=== PATIENT | female | born 1995 | race African-American/Black ===

== ENCOUNTER 2020-12-06 10:26 | Emergency (ER) | payer BC ==
--- NOTE | 2020-12-06 11:48 | RAD REPORT ---
EXAM DESCRIPTION: RAD - Chest Pa And Lat (2 Views) - 12/06/2020 11:41 am CLINICAL HISTORY: CHEST PAIN Chest pain. COMPARISON: CHEST PA AND LAT 2 VIEW dated 01/06/2013 FINDINGS: The lungs are clear. The heart is normal in size. No displaced fractures. IMPRESSION: No acute or concerning finding suspected.
--- NOTE | 2020-12-06 11:54 | EDPHYS ---
Physician Documentation [facility] Name: Charmaine Wilde Age: 25 yrs Sex: Female : 1995 Arrival Date: 12/06/2020 Time: 10:30 Bed 2 Private MD: ED Physician Damion Znuiga HPI: 12/06 11:24 This 25 yrs old Black Female presents to ER via Ambulatory with complaints of Chest rn Pain. 11:24 The patient or guardian reports chest pain that is located primarily in the anterior rn chest wall. The pain does not radiate. Associated signs and symptoms: The patient has no apparent associated signs or symptoms, Pertinent negatives: abdominal pain, cough, diaphoresis, lightheadedness, near syncope, recent travel, shortness of breath, syncope, vomiting. The chest pain is described as sharp, stabbing. Duration: The patient or guardian reports multiple episodes, that are intermittent. Modifying factors: The symptoms are alleviated by nothing. the symptoms are aggravated by movement, palpation of area, twisting torso. Severity of pain: At its worst the pain was mild in the emergency department the pain is unchanged. The patient has not experienced similar symptoms in the past. 11:25 The patient has not recently seen a physician. Reports woke up with anterior chest pain rn this morning, doesn't recall specific trauma, no sob or cough, no fever, no radiation, reports worse when twists, palpates breast bone, and moves arms. Does exercise but denies anything out of the ordinary lately. No abd pain/vomiting/diarrhea. No new medication. No famhx of early cardiac problems. . Historical: - Allergies: 10:35 No Known Allergies; sv - PMHx: 10:35 allergies; sv 10:35 Asthma; sv - PSHx: 10:35 None; sv - Immunization history:: Flu vaccine is not up to date. - Social history:: Smoking status: Patient denies any tobacco usage or history of. - Family history:: not pertinent. - Hospitalizations: : No recent hospitalization is reported. ROS: 11:25 Constitutional: Negative for fever, chills, and weight loss, Eyes: Negative for injury, rn pain, redness, and discharge, Neck: Negative for injury, pain, and swelling, Cardiovascular: Negative for palpitations, and edema, Respiratory: Negative for shortness of breath, cough, wheezing Abdomen/GI: Negative for abdominal pain, nausea, vomiting, diarrhea, and constipation, Back: Negative for injury and pain, MS/Extremity: Negative for injury and deformity, Skin: Negative for injury, rash, and discoloration, Neuro: Negative for headache, weakness, numbness, tingling, and seizure. Exam: 11:15 ECG was reviewed by the Attending Physician. rn 11:25 Constitutional: This is a well developed, well nourished patient who is awake, alert, rn and in no acute distress. Head/Face: Normocephalic, atraumatic. Eyes: Pupils equal round and reactive to light, extra-ocular motions intact. Chest/axilla: Normal chest wall appearance and motion. Reproducible anterior chest wall tenderness, no crepitus Cardiovascular: Regular rate and rhythm. No pulse deficits. Respiratory: Lungs have equal breath sounds bilaterally, clear to auscultation and percussion. No rales, rhonchi or wheezes noted. No increased work of breathing, no retractions or nasal flaring. Abdomen/GI: soft, non-tender Skin: Warm, dry with normal turgor. Normal color with no rashes, no lesions, and no evidence of cellulitis. MS/ Extremity: Pulses equal, no cyanosis. Neurovascular intact. Full, normal range of motion. Equal circumference. Neuro: Awake and alert, GCS 15, oriented to person, place, time, and situation. Cranial nerves II-XII grossly intact. Motor strength 5/5 in all extremities. Sensory grossly intact. Cerebellar exam normal. Normal gait. Vital Signs: 10:35 BP 118 / 93; Pulse 83; Resp 18; Temp 97.6; Pulse Ox 95% ; Weight 75.75 kg; Height 5 ft. sv 4 in. (162.56 cm); 11:58 BP 108 / 89; Pulse 73; Resp 22; Pulse Ox 100% on R/A; tw2 10:35 Body Mass Index 28.67 (75.75 kg, 162.56 cm) sv MDM: 11:07 Patient medically screened. rn 11:51 Differential diagnosis: acute pericarditis, chest wall pain, costochondritis, rn esophagitis, pleurisy, pneumothorax. Data reviewed: vital signs, nurses notes, EKG, radiologic studies, plain films, and as a result, I will discharge patient. Counseling: I had a detailed discussion with the patient and/or guardian regarding: the historical points, exam findings, and any diagnostic results supporting the discharge/admit diagnosis, radiology results, the need for outpatient follow up, to return to the emergency department if symptoms worsen or persist or if there are any questions or concerns that arise at home. Special discussion: Based on the patient's history, exam, and Dx evaluation, there is no indication for emergent intervention or inpatient Tx. It is understood by the patient/guardian that if the Sx's persist or worsen they need to return immediately for re-evaluation. I discussed with the patient/guardian in detail that at this point there is no indication for admission to the hospital. It is understood, however, that if the symptoms persist or worsen the patient needs to return immediately for re-evaluation. ED course: Reproducible chest wall tenderness on this 25 year old without risk factors, no ischemia on ECG, cxr neg, normal vitals, will dc home with pcp f/u and return precautions if worsens. . 12/06 11:15 Order name: XRAY Chest Pa And Lat (2 Views); Complete Time: 11:51 rn 12/06 11:15 Order name: EKG; Complete Time: 11:16 rn 12/06 11:15 Order name: EKG - Nurse/Tech; Complete Time: 11:16 rn EC:15 Rate is 70 beats/min. Rhythm is regular. QRS [place] is Normal. LA interval is normal. QRS rn interval is normal. QT interval is normal. No Q waves. T waves are Normal. No ST changes noted. Clinical impression: Normal ECG. Interpreted by me. Reviewed by me. Administered Medications: No medications were administered Disposition: 12/06/20 11:53 Discharged to Home. Impression: Chest pain, unspecified. - Condition is Stable. - Discharge Instructions: Nonspecific Chest Pain. - Medication Reconciliation Form, Thank You Letter, Antibiotic Education, Prescription Opioid Use, Work release form form. - Follow up: Private Physician; When: As needed; Reason: Recheck today's complaints, Re-evaluation by your physician. - Problem is new. - Symptoms have improved. Signatures: Dispatcher [employer] Freida Titus RN RN sv Nieto, Roman, MD MD rn Smirch, Shelby, RN RN ss Corrections: (The following items were deleted from the chart) 12:13 11:53 12/06/2020 11:53 Discharged to Home. Impression: Chest pain, unspecified. ss Condition is Stable. Forms are Work release form, Medication Reconciliation Form, Thank You Letter, Antibiotic Education, Prescription Opioid Use. Follow up: Private Physician; When: As needed; Reason: Recheck today's complaints, Re-evaluation by your physician. Problem is new. Symptoms have improved. rn
--- NOTE | 2020-12-06 11:54 | ER ---
Nurse's Notes [facility] Name: Charmaine Wilde Age: 25 yrs Sex: Female : 1995 Arrival Date: 12/06/2020 Time: 10:30 Bed 2 Private MD: Diagnosis: Chest pain, unspecified Presentation: 12/06 10:34 Chief complaint: Patient states: midsternal chest pain that woke her up out of her sv sleep that started this morning around 0630. Reports pain is with activity intermittently, denies CP at this time. Coronavirus screen: Client denies travel out of the [place] in the last 14 days. At this time, the client does not indicate any symptoms associated with coronavirus-19. Ebola Screen: No symptoms or risks identified at this time. Risk Assessment: Do you want to hurt yourself or someone else? Patient reports no desire to harm self or others. Onset of symptoms was December 06, 2020. 10:34 Method Of Arrival: Ambulatory sv 10:34 Acuity: JORDY 3 sv Historical: - Allergies: 10:35 No Known Allergies; sv - PMHx: 10:35 allergies; sv 10:35 Asthma; sv - PSHx: 10:35 None; sv - Immunization history:: Flu vaccine is not up to date. - Social history:: Smoking status: Patient denies any tobacco usage or history of. - Family history:: not pertinent. - Hospitalizations: : No recent hospitalization is reported. Screenin:20 Abuse screen: Denies threats or abuse. Nutritional screening: No deficits noted. tw2 Tuberculosis screening: No symptoms or risk factors identified. Fall Risk None identified. Assessment: 11:19 General: Appears in no apparent distress. well groomed, Behavior is anxious. Pain: tw2 Complains of pain in chest Pain does not radiate. Pain began suddenly. Neuro: Level of Consciousness is awake, alert, obeys commands, Oriented to person, place, time, situation. Cardiovascular: Reports chest pain, Denies shortness of breath, Patient's skin is warm and dry. Respiratory: Airway is patent Respiratory effort is even, unlabored, Respiratory pattern is regular, symmetrical. GI: No signs and/or symptoms were reported involving the gastrointestinal system. : No signs and/or symptoms were reported regarding the genitourinary system. EENT: No signs and/or symptoms were reported regarding the EENT system. Derm: No signs and/or symptoms reported regarding the dermatologic system. Musculoskeletal: Range of motion: intact in all extremities. 11:59 Reassessment: Patient appears in no apparent distress at this time. No changes from tw2 previously documented assessment. Patient and/or family updated on plan of care and expected duration. Pain level reassessed. Patient is alert, oriented x 3, equal unlabored respirations, skin warm/dry/pink. Vital Signs: 10:35 BP 118 / 93; Pulse 83; Resp 18; Temp 97.6; Pulse Ox 95% ; Weight 75.75 kg; Height 5 ft. sv 4 in. (162.56 cm); 11:58 BP 108 / 89; Pulse 73; Resp 22; Pulse Ox 100% on R/A; tw2 10:35 Body Mass Index 28.67 (75.75 kg, 162.56 cm) sv ED Course: 10:30 Patient arrived in ED. mr 10:34 Triage completed. sv 10:34 Arm band placed on. sv 10:39 EKG completed in triage. Results shown to MD. sv 11:07 Damion Zuniga MD is Attending Physician. rn 11:16 Mindy Webb RN is Primary Nurse. hb 11:21 Placed in gown. Bed in low position. corduroy brusher operator on. Pulse ox on. NIBP on. Warm tw2 blanket given. 11:21 Patient maintains SpO2 saturation greater than 95% on room air. tw2 11:40 X-ray completed. Patient tolerated procedure well. Note: pt shielded for x ray. Patient sw moved to radiology via wheelchair. Patient moved back from radiology. 11:41 XRAY Chest Pa And Lat (2 Views) In Process Unspecified. EDMS 12:12 No provider procedures requiring assistance completed. Patient did not have IV access ss during this emergency room visit. Administered Medications: No medications were administered Outcome: 11:53 Discharge ordered by . rn 12:12 Discharged to home ambulatory. ss 12:12 Condition: good 12:12 Discharge instructions given to patient, family, Instructed on discharge instructions, follow up and referral plans. Demonstrated understanding of instructions, follow-up care. 12:13 Patient left the ED. ss Signatures: Dispatcher [employer] EDMS Freida Manzano RN RN caden Vaca K[place] mr Zuniga, MD MD omari Bruno, Savanna, RN RN ss Kim Sawyer Heather, RN RN Irene Cordero, RN RN tw2
[2020-12-06 12:17] VITALS: TEMP 97.6
[2020-12-06 12:18] VITALS: BP 108/89; O2SAT 100
--- NOTE | 2020-12-07 18:44 | EKG ---
Test Date: 2020-12-06 Test Time: 10:39:17 Family Program Specialist: ARIANNA MEASUREMENT RESULTS: Intervals: Rate: 70 AK: 134 QRSD: 86 QT: 370 QTc: 399 [place]: P: 18 AK: 134 QRS: 57 T: 49 INTERPRETIVE STATEMENTS: Sinus rhythm with marked sinus arrhythmia Otherwise normal ECG No previous ECG available for comparison Electronically Signed On 12-07-20 18:40:37 KEEL PRESS OPERATOR by Brett Kaye
--- OUTSIDE RECORDS SUMMARY | 2020-12-07 21:40 | XMS REPORT ---
:1995 Author Organization [facility] Address [address] [place] [place] [address] Care Team Providers Name Role Phone Hirsch Unavailable [phone] PROBLEMS Type Condition ICD9-CM [id number] Onset Condition SNOMED Code Notes Code Code Dates Status Problem Recurrent L50.8 Active 81184595 periodic urticaria Problem Vitamin D E55.9 Active 61977520 deficiency Problem Asthma J45.909 Active 005194026 Problem Allergic J30.9 Active 01385817 rhinitis ALLERGIES No Known Allergies ENCOUNTERS from 1995 to 2020-11-21 Encounter Location Date Provider Diagnosis [employer] [facility] [address] [facility] [address] Oct, Ginger Hirsch Adult [facility] [place], [place] exam Z00 .00 ; Vitamin [address] D deficiency E5 5.9 ; Screening for diabetes mellit us (DM) Z13.1 ; Recurrent perio dic urticaria L50.8 ; Allergic rhinit is J30.9 and Asthm a J45.909 IMMUNIZATIONS No Information SOCIAL HISTORY Tobacco Use: Social History Observation Description Date Details (start date - stop date) Never Smoker Sex Assigned At : Social History Observation Description Sex Assigned At Unknown Tobacco Use/Smoking Question Answer Notes Are you a never smoker REASON FOR REFERRAL No Information VITAL SIGNS Height 64.00 in Oct, Weight 169 lbs Oct, Temperature 97.4 degrees Fahrenheit Oct, BMI 29.01 kg/m2 Oct, Oximetry 100 % Oct, Respiratory Rate 16 /min Oct, Blood pressure systolic 129 mm Hg Oct, Blood pressure diastolic 78 mm Hg Oct, MEDICATIONS Medication SIG (Take, Route, Frequency, Notes Start Date End Frantz e Status Duration) Womens Multivitamin - as directed Orally Active Iron 65 MG 1 tablet Orally Once a day for Active 30 day(s) PROCEDURES No Information RESULTS Component Value Reference Range COMPREHENSIVE METABOLIC PANEL(CMP) Reviewed date:11/17/2020 16:48:46 Interpretation: Performing Lab:, [facility], [address] [place] [address], [phone] Jaciel Simon GLUCOSE 95 65-99 UREA NITROGEN (BUN) 5 7-25 CREATININE 0.70 0.50-1.10 eGFR NON-AFR. FAROESE 119 > OR = 60 eGFR 138 > OR = 60 BUN/CREATININE RATIO 7 6-22 SODIUM 137 135-146 POTASSIUM 4.1 3.5-5.3 CHLORIDE 104 98-110 CARBON DIOXIDE 26 20-32 CALCIUM 9.4 8.6-10.2 PROTEIN, TOTAL 7.0 6.1-8.1 ALBUMIN 4.2 3.6-5.1 GLOBULIN 2.8 1.9-3.7 ALBUMIN/GLOBULIN RATIO 1.5 1.0-2.5 BILIRUBIN, TOTAL 0.5 0.2-1.2 ALKALINE PHOSPHATASE 32 31-125 AST 15 10-30 ALT 8 6-29 URINALYSIS, COMPLETE Reviewed date:11/17/2020 16:48:46 Interpretation: Performing Lab:, [facility], [address] [place] [address], [phone] Jaciel Simon COLOR YELLOW YELLOW APPEARANCE CLEAR CLEAR SPECIFIC GRAVITY 1.019 1.001-1.035 PH > OR = 8.5 5.0-8.0 GLUCOSE NEGATIVE NEGATIVE BILIRUBIN NEGATIVE NEGATIVE KETONES NEGATIVE NEGATIVE OCCULT BLOOD NEGATIVE NEGATIVE PROTEIN NEGATIVE NEGATIVE NITRITE NEGATIVE NEGATIVE LEUKOCYTE ESTERASE NEGATIVE NEGATIVE WBC NONE SEEN < OR = 5 RBC NONE SEEN < OR = 2 SQUAMOUS EPITHELIAL CELLS 0-5 < OR = 5 BACTERIA NONE SEEN NONE SEEN HYALINE CAST NONE SEEN NONE SEEN CBC (INCLUDES DIFF/PLT) Reviewed date:11/17/2020 16:48:46 Interpretation: Performing Lab:, [facility], [address] [place] [address], [phone] [facility] [place] [facility] WHITE BLOOD CELL COUNT 4.6 3.8-10.8 RED BLOOD CELL COUNT 4.39 3.80-5.10 HEMOGLOBIN 13.5 11.7-15.5 HEMATOCRIT 40.1 35.0-45.0 MCV 91.3 80.0-100.0 MCH 30.8 27.0-33.0 MCHC 33.7 32.0-36.0 RDW 12.8 11.0-15.0 PLATELET COUNT 343 140-400 MPV 10.0 7.5-12.5 ABSOLUTE NEUTROPHILS 2332 8484-5409 ABSOLUTE LYMPHOCYTES 5583 112-3984 ABSOLUTE MONOCYTES 354 200-950 ABSOLUTE EOSINOPHILS 32 15-500 ABSOLUTE BASOPHILS 32 0-200 NEUTROPHILS 50.7 LYMPHOCYTES 40.2 MONOCYTES 7.7 EOSINOPHILS 0.7 BASOPHILS 0.7 LIPID PANEL Reviewed date:11/17/2020 16:48:46 Interpretation: Performing Lab:, [facility], [address] [place] [address], [phone] [facility] [place] [facility] CHOLESTEROL, TOTAL 222 <200 HDL CHOLESTEROL 87 > OR = 50 TRIGLYCERIDES 54 <150 LDL-CHOLESTEROL 120 CHOL/HDLC RATIO 2.6 <5.0 NON HDL CHOLESTEROL 135 <130 VITAMIN D,25-OH,TOTAL,IA Reviewed date:11/17/2020 16:48:46 Interpretation: Performing Lab:, [facility], [address] [place] [address], [phone] Jaciel Alfred VITAMIN D,25-OH,TOTAL,IA 23 30-100 REASON FOR VISIT Wellness MEDICAL (GENERAL) HISTORY Type Description Date Medical History Allergic rhinitis Medical History Asthma Surgical History No Surgical history information Goals Section No Information Health Concerns No Information MEDICAL EQUIPMENT No Information MENTAL STATUS No Information FUNCTIONAL STATUS No Information ASSESSMENTS Encounter Date Diagnosis Assessment Notes Treatment Notes Treatm ent Clinical Notes Oct, Adult general - exercise regularly medical exam at least 30 minutes (ICD-10 - Z00.00) per day, maintain healthy diet with increased fruits and vegetables, diet low in fat/ cholesterol and sodium. -Aalways wear seatbelt in car, wear helmet when riding bike to prevent injury and wear sunblock if out in sun for more than 15 minutes to prevent skin cancer. - If sexually active advised to always use protection with condoms to prevent STDs. -Good to have annual check up annually. -Good to have an eye exam every year - Get Flu vaccine annually preferally July or brenda. - Tdap or Tetanus vaccine recommended every 10 years - Personalized care/ Routine labs ordered/ discussed and reviewed with patient -- labs ordered Oct, Vitamin D Increase foods rich deficiency in vitamin D such as (ICD-10 - E55.9) leafy greens, low fat milk or yogurt. Stay physically active. For strong bones and osteoprosis prevention take calcium 1200mg daily and vitamin D3 (2,000mg) daily. continue to stay physically active and do weight bearing exercises. Oct, Screening for screen for diabetes. diabetes mellitus (DM) (ICD-10 - Z13.1) Oct, Recurrent recommend allergy periodic testing for possible urticaria (ICD-10 cuases of allergies - L50.8) / uriticaria/hives for prevention /avoidance of triggers or immunotherapy treatment of allergies if allergens are identified. Oct, Allergic rhinitis recommend allergy (ICD-10 - J30.9) testing for possible cuases of allergies / uriticaria/hives for prevention /avoidance of triggers or immunotherapy treatment of allergies if allergens are identified. Oct, Asthma (ICD-10 - ecommend allergy J45.909) testing for possible cuases of allergies / uriticaria/hives for prevention /avoidance of triggers or immunotherapy treatment of allergies if allergens are identified. PLAN OF TREATMENT Treatment Notes Assessment Notes Clinical Notes Adult general medical exam - exercise regularly at least 30 minutes per day, maintain healthy diet with increased fruits and vegetables, diet low in fat/ cholesterol and sodium. -Aalways wear seatbelt in car, wear helmet when riding bike to prevent injury and wear sunblock if out in sun for more than 15 minutes to prevent skin cancer. - If sexually active advised to always use protection with condoms to prevent STDs. -Good to have annual check up annually. -Good to have an eye exam every year- Get Flu vaccine annually preferally July or August.- Tdap or Tetanus vaccine recommended every 10 years- Personalized care/ Routine labs ordered/ discussed and reviewed with patient-- labs ordered Vitamin D deficiency Increase foods rich in vitamin D such as leafy greens, low fat milk or yogurt. Stay physically active. For strong bones and osteoprosis prevention take calcium 1200mg daily and vitamin D3 (2,000mg) daily. continue to stay physically active and do weight bearing exercises. Screening for diabetes mellitus screen for diabetes. (DM) Recurrent periodic urticaria recommend allergy testing for possible cuases of allergies / uriticaria/hives for prevention /avoidance of triggers or immunotherapy treatment of allergies if allergens are identified. Allergic rhinitis recommend allergy testing for possible cuases of allergies / uriticaria/hives for prevention /avoidance of triggers or immunotherapy treatment of allergies if allergens are identified. Asthma ecommend allergy testing for possible cuases of allergies / uriticaria/hives for prevention /avoidance of triggers or immunotherapy treatment of allergies if allergens are identified. Next Appt Details 1 Year annual wellness,, prn Reason: Provider Name:Ginger Hirsch, 2021-11-21 01:0 0:00 PM, [address], [place], [phone], Insurance Providers Payer Name Payer Payer Insured Name Patient Coverage Covera End Address Phone Relationship to Start Date Frantz e Insured [employer] [phone] Darian Wilde self 2021 and Blue [id number] [facility] [id number]
--- OUTSIDE RECORDS SUMMARY | 2020-12-07 21:40 | XMS REPORT ---
:1995 Author Organization [facility] Address [address] [facility] [address] [place] [address] Care Team Providers Name Role Phone Torrey Unavailable [phone] PROBLEMS Type Condition ICD9-CM [id number] Onset Condition SNOMED Code Notes Code Code Dates Status Problem Recurrent L50.8 Active 29538080 periodic urticaria Problem Vitamin D E55.9 Active 31383583 deficiency Problem Asthma J45.909 Active 834816848 Problem Allergic J30.9 Active 98453544 rhinitis ALLERGIES No Known Allergies ENCOUNTERS from 1995 to 2020-11-24 Encounter Location Date Provider [facility] [address] [facility] [address] [place] [address] Oct, 2020 [place] [address] IMMUNIZATIONS No Information SOCIAL HISTORY Tobacco Use: Social History Observation Description Date Details (start date - stop date) Never Smoker Sex Assigned At : Social History Observation Description Sex Assigned At Unknown Tobacco Use/Smoking Question Answer Notes Are you a never smoker REASON FOR REFERRAL No Information VITAL SIGNS No information MEDICATIONS Medication SIG (Take, Route, Frequency, Notes Start Date End Frantz e Status Duration) Womens Multivitamin - as directed Orally Active Iron 65 MG 1 tablet Orally Once a day for Active 30 day(s) PROCEDURES No Information RESULTS No Results REASON FOR VISIT lab results MEDICAL (GENERAL) HISTORY Type Description Date Medical History Allergic rhinitis Medical History Asthma Surgical History No Surgical history information Goals Section No Information Health Concerns No Information MEDICAL EQUIPMENT No Information MENTAL STATUS No Information FUNCTIONAL STATUS No Information ASSESSMENTS No Information PLAN OF TREATMENT Next Appt Details Provider Name:Ginger Hirsch, 2021-11-21 01:0 0:00 PM, [address], [place], [address], Insurance Providers Payer Name Payer Payer Insured Name Patient Coverage Covera End Address Phone Relationship to Start Date Frantz e Insured [employer] [phone] Darian Wilde self 2021 and Blue [id number] [address] [place] [id number]
--- OUTSIDE RECORDS SUMMARY | 2020-12-07 21:40 | XMS REPORT | Continuity of Care Document ---
:1995 Author Organization [facility] t Address [address] [place] [address] Care Team Providers Name Role Phone Unavailable Unavailable Unavailable Payers Payer Name Policy Type Policy Number Effective Date Expiration Date S ource Problems This patient has no known problems. Allergies, Adverse Reactions, Alerts Allergy Allergy Status Severity Reaction(s) Onset Inactive Treating Comm ents Source Name Type Date Date Clinician No Known DA Active [facility] Medications This patient has no known medications. Procedures This patient has no known procedures. Encounters Start End Encounter Admission Attending Care Care Encounter Source Date/Time Date/Time Type Type Clinicians Facility Department ID 2020-11-17 2020-11-17 Outpatient [facility] [id number] [facility]00 [facility] ent Clinics 2020-11-15 2020-11-15 Outpatient [facility] [id number] [facility] ent Clinics Results Test Description Test Time Test Comments Results Result [facility] e Comments - US TRANSVAGINAL 2019-05-22 Patient Name: W/PELVIS 01:29:00 ELBA WILDE Unit No: [id number] EXAMS: CPT CODE: [id number] US TRANSVAGINAL W/PELVIS [id number] Pelvic and transvaginal ultrasound dated 05/21/2019. HISTORY: Lower abdominal pain. A transabdominal pelvic ultrasound was performed with subsequent transvaginal imaging to better visualize the endometrium and adnexa. Correlation is made with a prior pelvic ultrasound dated 11/08/2018. The uterus measures approximate 9.6 x 6.2 x 6.7 cm, and has a lobulated contour with diffuse myometrial heterogeneity and multifocal uterine fibroid tumors. Two subserosal fibroid tumors measuring 6.5 x 5.0 x 6.7 cm and 4.8 x 4.0 x 4.7 cm are identified to arise exophytically from the uterine fundus. A 2.2 x 2.7 x 2.3 cm intramural fibroid tumor is identified in the left anterior uterine body. A 3.1 x 3.5 x 3.5 cm submucosal fibroid tumor is identified in the lower posterior uterine body with with distortion of the uterine lumen. A 1.8 x 1.4 x 1.6 cm nodule appears to arise from the posterior uterine wall and project into the uterine lumen in the left fundal region that may also represent a submucosal fibroid tumor or an endometrial polyp. Endometrial thickness is otherwise within normal limits. Fluid is noted in the uterine lumen. Nabothian cysts are noted in the cervical region. The right ovary was only identified transvaginally, measures 3.0 x 1.3 x 1.3 cm and maintains normal echotexture. The left ovary was only identified transabdominally, measures 2.9 x 2.1 x 1.6 cm and maintains normal echotexture. Ovarian blood flow is documented bilaterally using Doppler ultrasound. A fluid-filled tubular structure is imaged in the left adnexa, possibly representing left hydrosalpinx. No free peritoneal fluid is identified. IMPRESSION: 1. Enlarged fibroid uterus. 2. A 1.8 x 1.4 x 1.6 cm nodule appears to arise from the posterior uterine wall and project into the uterine lumen in the left fundus. While this most likely represents a submucosal fibroid tumor, endometrial polyp would be included in the differential diagnosis. 3. A fluid-filled tubular structure is imaged in the left adnexa, possibly representing left hydrosalpinx. 4. No sonographic abnormalities of the ovaries are identified. SL: 131 at 0129 Reported and signed by: Mello Baker MD CC: Elio Gibson MD Technologist: Torrie Goyal RDSC, T Probe: [id number] Trnscrbd D/ (0129) t.[email or web address].[email or web address] Orig Print D/T: S: 05/22/2019 (0132) [facility] NAME: ELBA WILDE Radiology Department PHYS: YASMINE ClarkbgCastillomegan [address] : 1995 AGE: 24 SEX: F [place] [id number] LOC: [facility] PHONE #: [phone] EXAM DATE: 05/21/2019 STATUS: DEP ER FAX #: [phone] RAD NO: Page 1 Signed Report Patient Name: ELBA WILDE Unit No: [id number] EXAMS: CPT CODE: [id number] US TRANSVAGINAL W/PELVIS [id number] <Continued> [facility] NAME: ELBA WILDE Radiology Department PHYS: YASMINE ClarkbgElio Hazel [address] : 1995 AGE: 24 SEX: F [place] [id number] LOC: [place] PHONE #: [phone] EXAM DATE: 05/21/2019 STATUS: DEP ER FAX #: [phone] RAD NO: Page 2 Signed Report - US PELVIS 2019-05-22 Patient Name: COMPLETE 01:29:00 ELBA WILDE Unit No: [id number] EXAMS: CPT CODE: [id number] US PELVIS COMPLETE [id number] Pelvic and transvaginal ultrasound dated 05/21/2019. HISTORY: Lower abdominal pain. A transabdominal pelvic ultrasound was performed with subsequent transvaginal imaging to better visualize the endometrium and adnexa. Correlation is made with a prior pelvic ultrasound dated 11/08/2018. The uterus measures approximate 9.6 x 6.2 x 6.7 cm, and has a lobulated contour with diffuse myometrial heterogeneity and multifocal uterine fibroid tumors. Two subserosal fibroid tumors measuring 6.5 x 5.0 x 6.7 cm and 4.8 x 4.0 x 4.7 cm are identified to arise exophytically from the uterine fundus. A 2.2 x 2.7 x 2.3 cm intramural fibroid tumor is identified in the left anterior uterine body. A 3.1 x 3.5 x 3.5 cm submucosal fibroid tumor is identified in the lower posterior uterine body with with distortion of the uterine lumen. A 1.8 x 1.4 x 1.6 cm nodule appears to arise from the posterior uterine wall and project into the uterine lumen in the left fundal region that may also represent a submucosal fibroid tumor or an endometrial polyp. Endometrial thickness is otherwise within normal limits. Fluid is noted in the uterine lumen. Nabothian cysts are noted in the cervical region. The right ovary was only identified transvaginally, measures 3.0 x 1.3 x 1.3 cm and maintains normal echotexture. The left ovary was only identified transabdominally, measures 2.9 x 2.1 x 1.6 cm and maintains normal echotexture. Ovarian blood flow is documented bilaterally using Doppler ultrasound. A fluid-filled tubular structure is imaged in the left adnexa, possibly representing left hydrosalpinx. No free peritoneal fluid is identified. IMPRESSION: 1. Enlarged fibroid uterus. 2. A 1.8 x 1.4 x 1.6 cm nodule appears to arise from the posterior uterine wall and project into the uterine lumen in the left fundus. While this most likely represents a submucosal fibroid tumor, endometrial polyp would be included in the differential diagnosis. 3. A fluid-filled tubular structure is imaged in the left adnexa, possibly representing left hydrosalpinx. 4. No sonographic abnormalities of the ovaries are identified. SL: 131 at 0129 Reported and signed by: Mello Baker MD CC: Elio Gibson MD Technologist: Torrie Goyal RDMS, RVT Probe: Trnscrbd D/ (0129) Kelli Orig Print D/T: S: 05/22/2019 (0132) [facility] NAME: ELBA WILDE Radiology Department PHYS: Elio Long [address] : 1995 AGE: 24 SEX: F [place] [id number] LOC: [place] PHONE #: [phone] EXAM DATE: 05/21/2019 STATUS: DEP ER FAX #: [phone] RAD NO: Page 1 Signed Report Patient Name: ELBA WILDE Unit No: [id number] EXAMS: CPT CODE: [id number] US PELVIS COMPLETE [id number] <Continued> [facility] NAME: ELBA WILDE Radiology Department PHYS: Elio Long [address] : 1995 AGE: 24 SEX: F [place] [id number] LOC: [place] PHONE #: [phone] EXAM DATE: 05/21/2019 STATUS: DEP ER FAX #: [phone] RAD NO: Page 2 Signed Report CHEMISTRY 7 PROFILE 2019-05-21 21:27:00 Test Item Value Reference Range Interpretation Comme nts SODIUM (test code = NA) 137 mEq/L 135-145 N POTASSIUM (test code = K) 3.5 mEq/L 3.5-5.0 N CHLORIDE (test code = CL) 99 mEq/L 100-115 L CARBON DIOXIDE (test code = CO2) 31 mEq/L 22-31 N ANION GAP (test code = GAP) 10.80 10-20 N GLUCOSE (test code = GLU) 92 mg/dL 65-110 N BLOOD UREA NITROGEN (test code = BUN) 6 mg/dL 7-18 L GLOMERULAR FILTRATION RATE (test code = GFR) 97 ml/min >60 N CREATININE (test code = CREAT) 0.8 mg/dL 0.5-1.0 N CALCIUM (test code = CA) 9.0 mg/dL 8.4-10.2 N CBC W/AUTO [id number] 21:09:00 Test Item Value Reference Range Interpretation Comments WHITE BLOOD CELL (test code = WBC) 12.7 K/mm3 6.6-12.1 H RED BLOOD CELL (test code = RBC) 4.50 M/mm3 3.45-5.01 N HEMOGLOBIN (test code = HGB) 13.1 g/dL 10.7-13.9 N HEMATOCRIT (test code = HCT) 39.7 % 32.1-42.1 N MEAN CELL VOLUME (test code = MCV) 88 fL 84.1-94.8 N MEAN CELL HGB (test code = MCH) 29.1 pg 27-35 N MEAN CELL HGB CONCETRATION (test 33.0 gm/dL 32.2-34.1 N code = MCHC) RED CELL DISTRIBUTION WIDTH (test 12.6 % 12.4-16.5 N code = RDW) PLATELET COUNT (test code = PLT) 358 K/mm3 133-385 N IMMATURE PLATELET FRACTION (test 0.0 % 0.0-10.8 N code = IPF) MEAN PLATELET VOLUME (test code = 10.0 fl 9.1-12.7 N MPV) NEUTROPHIL % (test code = NT%) 64.7 % 56.5-79.4 N LYMPHOCYTE % (test code = LY%) 26.0 % 14.3-34.3 N MONOCYTE % (test code = MO%) 8.0 % 5.1-10.4 N EOSINOPHIL % (test code = EO%) 0.5 % 0.1-3.0 N BASOPHIL % (test code = BA%) 0.6 % 0.1-1.0 N NEUTROPHIL # (test code = NT#) 8.2 K/mm3 LYMPHOCYTE # (test code = LY#) 3.3 K/mm3 MONOCYTE # (test code = MO#) 1.0 K/mm3 EOSINOPHIL # (test code = EO#) 0.06 K/mm3 BASOPHIL # (test code = BA#) 0.1 K/mm3 RBC MORPHOLOGY REQUIRED (test code NORMAL NORMAL = RBCM) PLATELET MORPHOLOGY REQUIRED (test NORMAL NORMAL code = PLTMR) UR HCG [id number] 20:59:00 Test Item Value Reference Range Interpretation Comments UR HCG QUAL (test NEGATIVE 1. Very di lute urine code = HCGQLU) specimens, as indicated by a lowspecific g ravity, may not contain rep resentative levels ofhCG. 2 . False negative result s may occur when the levels of hCGare below the sensi tivity level of the test. If is still suspec ana, a first morningurine sp ecimen should be colle cted 48 hours later and tested. UA RFLX MICR CULT IF [id number] 20:49:00 Test Item Value Reference Range Interpretation Comments UA COLOR (test code = COLU) COLORLESS YELLOW UA APPEARANCE (test code = CLEAR CLEAR APPU) UA GLUCOSE DIPSTICK (test code NEGATIVE NEG = DGLUU) UA BILIRUBIN DIPSTICK (test NEGATIVE NEG code = BILU) UA KETONE DIPSTICK (test code TRACE NEG A = KETU) UA SPECIFIC GRAVITY (test code 1.001 1.001-1.035 N = SGU) UA BLOOD DIPSTICK (test code = NEG NEG STANISLAW) UA PH DIPSTICK (test code = 6.0 5-9 SORAIDA) UA PROTEIN DIPSTICK (test code NEGATIVE NEG = PROU) UA UROBILINIOGEN DIPSTICK NEGATIVE mg/dL NEG (test code = URO) UA NITRITE DIPSTICK (test code NEG NEG = CIRILO) UA LEUKOCYTE ESTERASE DIPSTICK TRACE NEG A (test code = LEUU) UA WBC (test code = WBCU) 0-2 #/hpf NONE SEEN UA RBC (test code = RBCU) 0-2 #/hpf NONE SEEN UA EPITHELIAL CELLS (test code FEW #/HPF RARE-FEW = EPIU) UA BACTERIA (test code = BACU) NEGATIVE /HPF RARE-FEW UA MUCUS (test code = MUCU) RARE NONE SEEN Indication for culture: Suprapubic Pain
== END 2020-12-06 12:13 | disposition home or self-care (01) ==
LOC: ER 10:26
DX: R07.9 Chest pain, unspecified (principal); J45.909 Unspecified asthma, uncomplicated
CPT/HCPCS: 71046; 93005; 99284

== ENCOUNTER 2023-11-25 11:48 | Observation (INO) | payer BC ==
--- OUTSIDE RECORDS SUMMARY | 2023-11-25 11:51 | XMS REPORT | Continuity of Care Document ---
Author Name Unknown Address [address] [facility] [address] [facility] [address] [place] [address] [facility] thconnect Address [address] [facility] [address] [place] [address] Care Team Providers Care Build Engineer Name Role Phone Daniela Farias Attending Clinician Unavail Ginger Cobb Attending Clinician Unavailable GEOVANNY_KEEGAN_Yuval_Jean-Pierre Attending Clinician UnavailBlank Rahman Attending Clinician Unavaila ble GEOVANNY_KEEGAN_Yuval_Jean-Pierre Admitting Clinician UnavailBlank Rahman Admitting Clinician UnavailGinger Wilson Ly Admitting Clinician Unavailable Payers Payer Name Policy Type Policy Number Effective Date Expirati on Date Source [place]MO[place] [id number] 2022 00:00:00 Blue Cross [employer] of [place] 6 [id number] 2019 00:00:00 [facility] Problems Condition Name Condition Details Condition Category Status Onset Date Resolution Date Last Treatment Date Treating Clinician Comments Source Recurrent periodic urticaria Recurrent periodic urticaria Problem Active [facility] Vitamin D deficiency Vitamin D deficiency Problem Active [facility] Asthma Asthma Problem Active [facility] Allergic rhinitis Allergic rhinitis Problem Active [facility] Allergies, Adverse Reactions, Alerts Allergy Name Allergy Type Status Severity Reaction(s) Onset Date Inactive Date Treating Clinician Comments Source No Known Allergie s DA Active U 05-21 00:00: 00 [facility] No Known Allergie s DA Active U 05-21 00:00: 00 [facility] Social History Social Habit Start Date Stop Date Quantity Comments Source History of Tobacco Use [facility] Sex Assigned At [facility] Smoking Status Start Date Stop Date Source Never Smoker [facility] Medications Ordered Medication Name Filled Medication Name Start Date Stop Date Current Medication? Ordering Clinician Indication Dosage Frequency Signature (SIG) Comments Components Source Womens Multivitami n - Womens Multivitami n - No Womens Multivitam in - Iron 65 MG Iron 65 MG No 1{ table t} QD Iron 65 MG Womens Multivitami n - Womens Multivitami n - No Womens Multivitam in - Iron 65 MG Iron 65 MG No 1{ table t} QD Iron 65 MG Vital Signs Vital Name Observation Time Observation Value Comments S gavin height 2021-11-21 13:00:00 64.00 [in_i] Com [facility] weight 2021-11-21 13:00:00 167.2 [lb_av] Co mmon [facility] temperature 2021-11-21 13:00:00 97.2 [degF] Com [facility] bmi 2021-11-21 13:00:00 28.70 kg/m2 Comm on [facility] oximetry 2021-11-21 13:00:00 100 % Commo n [facility] respiratory rate 2021-11-21 13:00:00 15 /min [facility] blood pressure systolic 2021-11-21 13:00:00 129 mm[Hg] [facility] blood pressure diastolic 2021-11-21 13:00:00 88 mm[Hg] [facility] Procedures Procedure Date / Time Performed Performing Clinicia n Source [id number] 2022-12-15 00:00:00 LETICIA.Davis [facility] Encounters Start Date/Time End Date/Time Encounter Type Admission Type Attending [facility] Care Facility Care Department Encounter ID Source 2023-11-01 10:56:00 Outpatient Daniela Farias STLMLC STLMLC [id number] [facility] 2023-10-31 08:22:00 Outpatient Daniela Farias STLMLC STLMLC [id number] [facility] 2023-10-10 09:14:00 Outpatient Daniela Farias STLMLC STLMLC [id number] [facility] 2021-11-23 14:40:23 Outpatient Hirsch, Na STLMLC STLMLC [id number] [facility] 2021-11-23 12:26:56 Outpatient Hirsch, Na STLMLC STLMLC [id number] [facility] 2021-11-23 12:24:14 Outpatient Hirsch, Na STLMLC STLMLC [id number] [facility] 2021-11-23 12:21:52 Outpatient Hirsch, Na STLMLC STLMLC [id number] [facility] 2021-11-23 12:21:04 Outpatient Hirsch, Na STLMLC STLMLC [id number] [facility] 2021-11-23 11:17:41 Outpatient Hirsch, Na STLMLC STLMLC [id number] [facility] 2023-03-18 00:00:00 2023-03-18 00:00:00 Outpatient GC_SWHASA_R amivarghesez_C [facility] [id number] [facility] 2023-02-19 00:00:00 2023-02-19 00:00:00 Outpatient GC_SWHASA_R amirez_C PRIV PRIV [id number] [facility] 2023-02-05 00:00:00 2023-02-05 00:00:00 Outpatient GC_SWHASA_R amirez_C PRIV PRIV [id number] [facility] 2022-12-15 10:16:00 2022-12-17 11:06:00 Inpatient Blank Chaudhry [facility].01 [id number] [facility] 2022-07-05 12:43:00 2022-07-05 12:43:00 Outpatient Blank Chaudhry [facility] [id number] [facility] 2021-12-02 00:00:00 2021-12-02 00:00:00 (TEL) STLMLC STLMLC [id number] [facility] 2021-11-21 00:00:00 2021-11-21 00:00:00 PREV VISIT EST AGE 18-39 STLMLC STLMLC [id number] [facility] 2020-11-17 00:00:00 2020-11-17 00:00:00 Outpatient STLMLC STLMLC [id number] [facility] 2020-11-15 00:00:00 2020-11-15 00:00:00 Outpatient STLMLC STLMLC [id number] [facility] 2020-11-15 00:00:00 2020-11-15 00:00:00 Outpatient STLMLC STLMLC [id number] [facility] Results Test Description Test Time Test Comments Results Result Co mments Source CBC W/AUTO [id number] 06:14:00* Test Item Value Reference Range Interpretation Comme nts WHITE BLOOD CELL (test code = WBC) 9.7 K/mm3 6.5-12.3 N RED BLOOD CELL (test code = RBC) 3.70 M/mm3 3.51-4.69 N HEMOGLOBIN (test code = HGB) 11.4 g/dL 10.1-13.8 N HEMATOCRIT (test code = HCT) 33.4 % 32.5-41.8 N MEAN CELL VOLUME (test code = MCV) 90.3 fL 84.6-96.6 N MEAN CELL HGB (test code = MCH) 30.8 pg 27.3-33.9 N MEAN CELL HGB CONCETRATION ( test code = MCHC) 34.1 gm/dL 32.0-34.2 N RED CELL DISTRIBUTION WIDTH (test code = RDW) 12.1 % 12.2-16.3 L PLATELET COUNT (test code = PLT) 312 K/mm3 134-363 N MEAN PLATELET VOLUME (test c ode = MPV) 10.1 fL 9.2-12.7 N NEUTROPHIL % (test code = NT%) 74.0 % 57.9-77.3 N LYMPHOCYTE % (test code = LY%) 16.1 % 14.5-29.7 N MONOCYTE % (test code = MO%) 9.5 % 3.6-10.2 N EOSINOPHIL % (test code = EO%) 0.0 % 0.0-3.0 N BASOPHIL % (test code = BA%) 0.2 % 0.1-0.9 N NEUTROPHIL # (test code = NT#) 7.2 K/mm3 LYMPHOCYTE # (test code = LY#) 1.6 K/mm3 MONOCYTE # (test code = MO#) 0.9 K/mm3 EOSINOPHIL # (test code = EO#) 0 K/mm3 BASOPHIL # (test code = BA#) 0.0 K/mm3 RBC MORPHOLOGY REQUIRED (prashanth t code = RBCM) NORMAL NORMAL PLATELET MORPHOLOGY REQUIRED (test code = PLTMR) NORMAL NORMAL UR HCG [id number] 12:16:00* Test Item Value Reference Range Interpretation Comme nts UR HCG QUAL (test code = HCGQLU) NEGATIVE 1. Very dilute u rine specimens, as indicated by a lowspecific gravity, may not contain admitting representative levels ofhCG. 2. False negative results may occur when the levels of hCGare below the sensitivity level of the test. If is still suspected, a first morningurine specimen should be collected 48 hours later andtested. COVID 19 Asymptomatic IH [id number] 15:35:00* Test Item Value Reference Range Interpretation Comme nts COVID 19 Asymptomatic IH AG (test code = COVNONPUIAG) NEGATIVE NEGATIVE This test has be en authorized only for the detection ofproteins from SARS-CoV-2, not for any other viruses orpathogens. Negative results should be treated as presumptive andconfirmed with a molecular assay, if necessary for patientmanagement. Negative results do not rule out COVID-19 andshould not be used as the sole basis for treatment orpatient management decisions, including infection controldecisions. Negative results should be considered in thecontext of a patient's recent exposures, history and thepresence of clinical signs and symptoms consistent withCOVID-19. This test has not been FDA cleared or approved; the test hasbeen authorized by FDA under an Emergency Use Authorization(EUA) for use by laboratories certified under the CLIA thatmeet the requirements to perform moderate, high or waivedcomplexity tests. This test is authorized for use at thePoint of Care (POC), i.e., in patient care settingsoperating under a CLIA Certificate of Waiver, Certificate ofCompliance, or Certificate of Accreditation. This test is only authorized for the duration of thedeclaration that circumstances exist justifying theauthorization of emergency use of in vitro diagnostic testsfor detection and/or diagnosis of COVID-19 under Lcjvhov268(b)(1) of the Act, 21 U.S.C. 360bbb-3(b)(1), unless theauthorization is terminated or revoked sooner. CBC W/AUTO [id number] 15:06:00* Test Item Value Reference Range Interpretation Comme nts WHITE BLOOD CELL (test code = WBC) 7.1 K/mm3 6.5-12.3 N RED BLOOD CELL (test code = RBC) 4.44 M/mm3 3.51-4.69 N HEMOGLOBIN (test code = HGB) 13.8 g/dL 10.1-13.8 N HEMATOCRIT (test code = HCT) 40.4 % 32.5-41.8 N MEAN CELL VOLUME (test code = MCV) 91.0 fL 84.6-96.6 N MEAN CELL HGB (test code = MCH) 31.1 pg 27.3-33.9 N MEAN CELL HGB CONCETRATION ( test code = MCHC) 34.2 gm/dL 32.0-34.2 N RED CELL DISTRIBUTION WIDTH (test code = RDW) 12.3 % 12.2-16.3 N PLATELET COUNT (test code = PLT) 326 K/mm3 134-363 N MEAN PLATELET VOLUME (test c ode = MPV) 10.2 fL 9.2-12.7 N NEUTROPHIL % (test code = NT%) 59.2 % 57.9-77.3 N LYMPHOCYTE % (test code = LY%) 31.4 % 14.5-29.7 H MONOCYTE % (test code = MO%) 7.9 % 3.6-10.2 N EOSINOPHIL % (test code = EO%) 0.8 % 0.0-3.0 N BASOPHIL % (test code = BA%) 0.6 % 0.1-0.9 N NEUTROPHIL # (test code = NT#) 4.2 K/mm3 LYMPHOCYTE # (test code = LY#) 2.2 K/mm3 MONOCYTE # (test code = MO#) 0.6 K/mm3 EOSINOPHIL # (test code = EO#) 0.06 K/mm3 BASOPHIL # (test code = BA#) 0.0 K/mm3 RBC MORPHOLOGY REQUIRED (prashanth t code = RBCM) NORMAL NORMAL PLATELET MORPHOLOGY REQUIRED (test code = PLTMR) NORMAL NORMAL UR HCG [id number] 15:06:00* Test Item Value Reference Range Interpretation Comme nts UR HCG QUAL (test code = HCGQLU) NEGATIVE 1. Very dilute u rine specimens, as indicated by a lowspecific gravity, may not contain admitting representative levels ofhCG. 2. False negative results may occur when the levels of hCGare below the sensitivity level of the test. If is still suspected, a first morningurine specimen should be collected 48 hours later andtested. - US PELVIS [id number] 00:00:00 [facility] 1995 Sex: F Patient Name: CHARMAINE XAVIER Unit No: [id number] EXAMS: CPT CODE: [id number] US PELVIS COMPLETE 16694 PROCEDURE INFORMATION: Exam: US Pelvis Complete (Transabdominal), Pelvis (Transvaginal), and US Duplex Artery or Vein (Ovaries) Limited Exam date and time: 07/05/2022 1:06 PM Age: 27 years old Clinical indication: Condition or disease; Other: Fibroids; Uterine condition; Additional info: Uterineleiomyoma; () TECHNIQUE: Imaging protocol: Real-time transabdominal and transvaginal pelvic ultrasound (complete) with image documentation. Transvaginal imaging was used for better evaluation of theendometrium, adnexa, and/or cervix. Real-time duplex ultrasound scan of the arterial or venous flowof the ovaries with B-mode, color Doppler flow and spectral waveform analysis. Complete Pelvis, Limited Duplex. COMPARISON: OT US PELVIS COMPLETE 05/21/2019 10:29 PM FINDINGS: Uterus: Uterus measures 13.2 cm length. 5.7 cm intramural or submucosal fibroid lower uterine segment, 4.8 cm intramural fibroid anteriorly, 4.4 cm subserosal or intramural fibroid posteriorly, 2.3 cm intramural fibroid at the fundus and 16.7 cm pedunculated fibroid anteriorly at the umbilicus which may be larger or better visualized. The endometrial stripe is partially obscured by the fibroids and measures 1.4 cm thickness. Cervix: Nabothian cyst. Right ovary/adnexa: The right ovary measures 5.2 x 2.4 x 2.7 cm with Doppler flow. Left ovary/adnexa: Left ovary measures 3.8 x 2.9 x 3.6 cm with Doppler flow. Intraperitoneal space: No intraperitoneal fluid. Urinary bladder: The bladder is under distended. IMPRESSION:Enlarged uterus with extensive fibroids, with possible interval enlargement of the pedunculated fibroid. If further delineation is desired, an MRI pelvis without and with IV contrast can be obtained. at 1407 Reported and signed by: Sean Brown MD CC: Blank Ramos MD; Ginger Hirsch DO Technologist: Deysi Young RDMS Probe: Trnscrbd D/ (1407) GCD.CPS Orig Print D/T: S: 07/05/2022 (1408) [facility] NAME: CHARMAINE XAVIER Radiology Department PHYS: Blank Diaz [address] : 1995 AGE: 27 SEX: F [place], [place] [address] LOC: Jacek.RAD PHONE #: [phone] EXAM DATE: 07/05/2022 STATUS: REG CLI FAX #: [phone] RAD NO: Page 1 Signed Report Patient Name: CHARMAINE XAVIER Unit No: [id number] EXAMS: CPT CODE: [id number] US PELVIS COMPLETE 11704 (Continued) [facility] NAME: CHARMAINE XAVIER Radiology Department PHYS: Blank Duran [address] : 1995 AGE: 27 SEX: F [place], [place] [address] LOC: Jacek.RAD PHONE #: [phone] EXAM DATE: 07/05/2022 STATUS: REG CLI FAX #: [phone] RAD NO: Page 2 Signed Report- US TRANSVAGINAL [id number] 00:00:00 [facility] 1995 Sex: FPatient Name: CHARMAINE XAVIER Unit No: [id number] EXAMS: CPT CODE: [id number] US TRANSVAGINAL W/PELVIS 55781 PROCEDURE INFORMATION: Exam: US Pelvis Complete (Transabdominal), Pelvis (Transvaginal), and US Duplex Artery or Vein (Ovaries) Limited Exam date and time: 07/05/2022 1:06 PM Age: 27 years oldClinical indication: Condition or disease; Other: Fibroids; Uterine condition; Additional info: Uterine leiomyoma; () TECHNIQUE: Imaging protocol: Real-time transabdominal and transvaginal pelvic ultrasound (complete) with image documentation. Transvaginal imaging was used for better evaluation of the endometrium, adnexa, and/or cervix. Real-time duplex ultrasound scan of the arterial or venous flow of the ovaries with B- mode, color Doppler flow and spectral waveform analysis. Complete Pelvis, L imited Duplex. COMPARISON: OT US PELVIS COMPLETE 05/21/2019 10:29 PM FINDINGS: Uterus: Uterus measures 13.2 cm length. 5.7 cm intramural or submucosal fibroid lower uterine segment, 4.8 cm intramural fibroid anteriorly, 4.4 cm subserosal or intramural fibroid posteriorly, 2.3 cm intramural fibroid at the fundus and 16.7 cm pedunculated fibroid anteriorly at the umbilicus which may be larger or better visualized. The endometrial stripe is partially obscured by the fibroids and measures 1.4 cm thickness. Cervix: Nabothian cyst. Right ovary/adnexa: The right ovary measures 5.2 x 2.4 x 2.7 cm withDoppler flow. Left ovary/adnexa: Left ovary measures 3.8 x 2.9 x 3.6 cm with Doppler flow. Intraperitoneal space: No intraperitoneal fluid. Urinary bladder: The bladder is under distended. IMPRESSION: Enlarged uterus with extensive fibroids, with possible interval enlargement of the pedunculated fibroid. If further delineation is desired, an MRI pelvis without and with IV contrast can be obtained. at 1407 Reported and signed by: Waleska Brown MD CC: Blank Ramos MD; Ginger Hirsch DO Technologist: Deysi Young [facility] Probe: [id number] Trnscrbd D/ (1407) GCD.CPS Orig Print D/T: S: 07/05/2022 (1408) [facility] NAME: CHARMAINE XAVIER Radiology Department PHYS: Blank Diaz [address] : 1995 AGE: 27 SEX: F [place] [address] LOC: F.RAD PHONE #: [phone] EXAM DATE: 07/05/2022 STATUS: REG CLI FAX #: [phone] RAD NO: Page 1 Signed Report Patient Name: CHARMAINE XAVIER Unit No: [id number] EXAMS: CPT CODE: [id number] US TRANSVAGINAL W/PELVIS 12048 (Continued) [facility] NAME: CHARMAINE XAVIER Radiology Department PHYS: DORINABlank Muller [address] : 1995 AGE: 27 SEX: F [place] [address] LOC: Jacek.RAD PHONE #: [phone] EXAM DATE: 07/05/2022 STATUS: REG CLI FAX #: [phone] RAD NO: Page 2 Signed Report- DUP AB/PEL/SC/[id number] 00:00:00 [facility] 1995 Sex: FPatient Name: CHARMAINE XAVIER Unit No: [id number] EXAMS: CPT CODE: [id number] DUP AB/PEL/SC/LTD 44722 PROCEDURE INFORMATION: Exam: US Pelvis Complete (Transabdominal), Pelvis (Transvaginal), and US Duplex Artery or Vein (Ovaries) Limited Exam date and time: 07/05/2022 1:06 PM Age: 27 years old Clinical indication: Condition or disease; Other: Fibroids; Uterine condition; Additional info: Uterine leiomyoma; () TECHNIQUE: Imaging protocol: Real-time transabdominal and transvaginal pelvic ultrasound(complete) with image documentation. Transvaginal imaging was used for better evaluation of the endo metrium, adnexa, and/or cervix. Real-time duplex ultrasound scan of the arterial or venous flow of the ovaries with B-mode, color Doppler flow and spectral waveform analysis. Complete Pelvis, LimitedDuplex. COMPARISON: OT US PELVIS COMPLETE 05/21/2019 10:29 PM FINDINGS: Uterus: Uterus measures 13.2cm length. 5.7 cm intramural or submucosal fibroid lower uterine segment, 4.8 cm intramural fibroidanteriorly, 4.4 cm subserosal or intramural fibroid posteriorly, 2.3 cm intramural fibroid at the fundus and 16.7 cm pedunculated fibroid anteriorly at the umbilicus which may be larger or better visualized. The endometrial stripe is partially obscured by the fibroids and measures 1.4 cm thickness.Cervix: Nabothian cyst. Right ovary/adnexa: The right ovary measures 5.2 x 2.4 x 2.7 cm with Doppler flow. Left ovary/adnexa: Left ovary measures 3.8 x 2.9 x 3.6 cm with Doppler flow. Intraperitonealspace: No intraperitoneal fluid. Urinary bladder: The bladder is under distended. IMPRESSION: Enlarged uterus with extensive fibroids, with possible interval enlargement of the pedunculated fibroid. If further delineation is desired, an MRI pelvis without and with IV contrast can be obtained. at 1407 Reported and signed by: Sean Brown MD CC: Blank Ramos MD; Ginger Hirsch DO Technologist: Deysi Young RDMS Probe: Trnscrbd D/ (1407) GCD.CPS Orig Print D/T: S: 07/05/2022 (1408) [facility] NAME: CHARMAINE XAVIER Radiology Department PHYS: Blank Diaz [address] : 1995 AGE: 27 SEX: F [place] [address] LOC: TabbyRAD PHONE #: [phone] EXAM DATE: 07/05/2022 STATUS: REG CLI FAX #: [phone] RAD NO: Page 1 Signed Report Patient Name:CHARMAINE XAVIER Unit No: [id number] EXAMS: CPT CODE: [id number] DUP AB/PEL/SC/LTD 01416 (Continued)[facility] NAME: CHARMAINE XAVIER Radiology Department PHYS: KARL Blank Ramos [address] : 1995 AGE: 27 SEX: F [place] [address] LOC: TabbyRAD PHONE #: [phone] EXAM DATE: 07/05/2022 STATUS: REG CLI FAX #: [phone] RAD NO: Page 2 Signed Report- US TRANSVAGINAL [id number] 01:29:00Patient Name: CHARMAINE XAVIER Unit No: [id number] EXAMS: CPT CODE: [id number] US TRANSVAGINAL W/PELVIS 57785 Pelvic and transvaginal ultrasound dated 05/21/2019. HISTORY: [...] left adnexa, possibly representing left hydrosalpinx. No freeperitoneal fluid is identified. IMPRESSION: 1. Enlarged fibroid [...] Elio Gibson MD Technologist: Torrie Goyal RDMS, T Probe: [id number] Trnscrbd D/ (0129) Kelli Orig Print D/T: S: 05/22/2019 (0132)[facility] NAME: CHARMAINE XAVIER Radiology Department PHYS: Elio Long [address] : 1995 AGE: 24 SEX: [place], [place] [address] LOC: TabbyERS PHONE #: [phone] EXAM DATE: 05/21/2019 STATUS: DEP ER FAX #: [phone] RAD NO: Page 1 Signed Report Patient Name: CHARMAINE XAVIER Unit No: [id number] EXAMS: CPT CODE: [id number] USTRANSVAGINAL W/PELVIS 11958 (Continued) [facility] [place] NAME: CHARMAINE XAVIER Radiology Department PHYS: Elio Long [address] : 1995 AGE: 24 SEX: [place], [place] [address] LOC: KEESHA PHONE #: [phone] EXAM DATE: 05/21/2019 STATUS: DEP ER FAX #: [phone] RAD NO: Page 2 Signed Report - US PELVIS [id number] 01:29:00Patient Name: CHARMAINE XAVIER Unit No: [id number] EXAMS: CPT CODE: [id number] US PELVIS COMPLETE 15900 Pelvic and transvaginal ultrasound dated 05/21/2019. HISTORY: Lower abdominal pain. A transabdominal pelvic ultrasound was performed with subsequent transvaginal imaging to better visualize the endometrium and adnexa. Correlation is made with a prior pelvic ultrasound dated 11/08/2018. The uterusmeasures approximate 9.6 x 6.2 x 6.7 cm, [...] anterior uterine body. A 3.1 x 3.5 x3.5 cm submucosal fibroid tumor is identified in the lower posterior uterine body with with distortion of the uterine lumen. A 1.8 x 1.4 x 1.6 cm nodule appears to arise from the posterior uterine wall and project into the uterine lumen in the left fundal region that may also represent a submucosalfibroid tumor or an endometrial polyp. Endometrial thickness is otherwise within normal limits. Flui d is noted in the uterine lumen. Nabothian cysts are noted in the cervical region. The right ovary was only identified transvaginally, measures 3.0 x 1.3 x 1.3 cm and maintains normal echotexture. The left ovary was only identified transabdominally, measures 2.9 x 2.1 x 1.6 cm and maintains normal echotexture. Ovarian blood flow is documented bilaterally using Doppler ultrasound. A fluid- filled tubular structure is imaged in the left adnexa, possibly representing left hydrosalpinx. No free peritoneal fluid is identified. IMPRESSION: 1. Enlarged fibroid uterus. 2. A 1.8 x 1.4 x 1.6 cm nodule appears to arise from the posterior uterine wall and project into the uterine lumen in the left fundus . While this most likely represents a submucosal fibroid tumor, endometrial polyp would be included in the differential diagnosis. 3. A fluid-filled tubular structure is imaged in the left adnexa, possibly representing left hydrosalpinx. 4. No sonographic abnormalities of the ovaries are identified. SL: 131 at 0129 Reported and signed by: Mello Baker MD CC: Elio Gibson MD Technologist: Torrie Goyal RDMS, T Probe: Trnscrbd D/ (0129) t.DMM Orig Print D/T: S: 05/22/2019 (0132) [facility] [place] [facility] NAME: CHARMAINE XAVIER Radiology Department PHYS: Elio Long [address] : 1995 AGE: 24 SEX: F [place], [place] [address] LOC: Jacek.ERS PHONE #: [phone] EXAM DATE: 05/21/2019 STATUS: DEP ER FAX #: [phone] RAD NO: Page 1 Signed Report Patient Name: CHARMAINE XAVIER Unit No: [id number] EXAMS: CPT CODE: [id number] US PELVIS COMPLETE 67053 (Continued) [facility] NAME: CHARMAINE XAVIER Radiology Department PHYS:Elio Long [address] : 1995 AGE: 24 SEX: F [place], [place] [address] LOC: KEESHA PHONE #: [phone] EXAM DATE: 05/21/2019 STATUS: DEP ER FAX #: [phone] RAD NO: Page 2 Signed ReportCHEMISTRY 7 [id number] 21:27:00* Test Item Value Reference Range Interpretation Comme [...] mg/dL 65-110 N BLOOD UREA NITROGEN (test co de = BUN) 6 mg/dL 7-18 L GLOMERULAR FILTRATION RATE ( test code = GFR) 97 ml/min >60 N CREATININE (test code = CREAT) 0.8 mg/dL 0.5-1.0 N CALCIUM (test code = CA) 9.0 mg/dL 8.4-10.2 N CBC W/AUTO [id number] 21:09:00* Test Item Value Reference Range Interpretation Comme nts WHITE BLOOD CELL (test code = WBC) [...] pg 27-35 N MEAN CELL HGB CONCETRATION ( test code = MCHC) 33.0 gm/dL 32.2-34.1 N RED CELL DISTRIBUTION WIDTH (test code = RDW) 12.6 % 12.4-16.5 N PLATELET COUNT (test code = PLT) 358 K/mm3 133-385 N IMMATURE PLATELET FRACTION ( test code = IPF) 0.0 % 0.0-10.8 N MEAN PLATELET VOLUME (test c ode = MPV) 10.0 fl 9.1-12.7 N NEUTROPHIL % (test code = NT%) 64.7 [...] = BA#) 0.1 K/mm3 RBC MORPHOLOGY REQUIRED (prashanth t code = RBCM) NORMAL NORMAL PLATELET MORPHOLOGY REQUIRED (test code = PLTMR) NORMAL NORMAL UR HCG [id number] 20:59:00* Test Item Value Reference Range Interpretation Comme nts UR HCG QUAL (test code = HCGQLU) NEGATIVE 1. Very dilute u rine specimens, as indicated by a lowspecific gravity, may not contain admitting representative levels ofhCG. 2. False negative results may occur when the levels of hCGare below the sensitivity level of the test. If is still suspected, a first morningurine specimen should be collected 48 hours later andtested. UA RFLX MICR CULT IF [id number] 20:49:00* Test Item Value Reference Range Interpretation Comme nts UA COLOR (test code = COLU) COLORLESS YELLOW UA APPEARANCE (test code = APPU) CLEAR CLEAR UA GLUCOSE DIPSTICK (test co de = DGLUU) NEGATIVE NEG UA BILIRUBIN DIPSTICK (test code = BILU) NEGATIVE NEG UA KETONE DIPSTICK (test cod e = KETU) TRACE NEG A UA SPECIFIC GRAVITY (test co de = SGU) 1.001 1.001-1.035 N UA BLOOD DIPSTICK (test code = STANISLAW) NEG NEG UA PH DIPSTICK (test code = SORAIDA) 6.0 5-9 UA PROTEIN DIPSTICK (test co de = PROU) NEGATIVE NEG UA UROBILINIOGEN DIPSTICK (test code = URO) NEGATIVE mg/dL NEG UA NITRITE DIPSTICK (test co de = CIRILO) NEG NEG UA LEUKOCYTE ESTERASE DIPSTI CK (test code = LEUU) TRACE NEG A UA WBC (test code = WBCU) 0-2 #/hpf NONE SEEN UA RBC (test code = RBCU) 0-2 #/hpf NONE SEEN UA EPITHELIAL CELLS (test co de = EPIU) FEW #/HPF RARE-FEW UA BACTERIA (test code = BACU) NEGATIVE /HPF RARE-FEW UA MUCUS (test code = MUCU) RARE NONE SEEN Indication for culture: Suprapubic Pain Notes Date/Time Note Provider Source 2022-12-16 18:06:00 [id number]+M6yV qfn6h6VGQD3IBSNOohZmVaKceSw9110-18-51T79:06:00 [facility] ([facility])Discharge SummaryREPORT#:[id number] REPORT STATUS: SignedDATE:12/16/22 TIME: 1805 PATIENT: CHARMAINE XAVIER UNIT #: [id number]#: [id number] [address] [birth year] AGE: 27 SEX: F ATTEND: Blank Ramos AUTHOR: Blank Ramos MD * ALL edits or amendments must be made on the electronic/computer document * PCP PCPDischarge to: home General InformationDate of admission:Observation Start Date: Date of admission: 12/15/22 Discharge date: 12/17/22Admission diagnosis:Multifibroid uterusDischarge diagnosis:Multifibroid uterusHospital course:Pt is a 27 yo G0 with multifibroid uterus who presented for scheduled abdominal myomectomy. She underwent an uncomplicate surgery. She recovered well postoperatively and met milestones appropriately.Pt. condition on discharge: stableAllergies:Allergies:No Known Allergies (Coded, 05/21/19) Med Rec PCPPCP:PCP: Ginger Hirsch DO Med RecDischarge meds:Start taking the following new medications:traMADol (ULTRAM) 50 MG TAB 50 MILLIGRAM ORAL EVERY 6 HOURS NEEDED. as needed for PAIN SCALE 4-6 Qty = 30 No Refills IBUPROFEN (MOTRIN) 600 MG TAB 600 MILLIGRAM ORAL EVERY 6 HOURS NEEDED. as needed for postop pain Qty = 30 No Refills ObjectiveVS/I OLast Documented: Result Date Time Pulse Ox 99 12/17 0354 B/P 104/70 12/17 0354 B/P Mean 81.1 12/17 0354 O2 Delivery Room air 12/17 035 Temp 98.1 12/17 0354 Pulse 65 12/17 0354 Resp 18 12/17 0354 O2 Flow Rate 10 12/15 1515 24 hour I O ending at 0700: 12/17 0700 12/16 1900 Intake Total Output Total 500 500 Balance -500 -500 Output, Urine 500 500 PATIENT WEIGHT: Weight (lb): 164Weight (oz): 14.49Weight (kg): 74.800 General appearance: alert, awake, oriented, no acute distress, pleasant, conversational, mental status normal, no respiratory distressHead/Eyes: atraumatic, clear cornea, EOMI, normocephalicGI: soft, non-tender, no guarding, no rebound, no distentionExtremities: moves all, no edema-all extremitiesMusculoskeletal: full range of motionNeuro/ATTACHER: alert, oriented X 3, no motor deficits, no sensory deficitsWound/incision: Location:incision c/d/iPsychiatry: normal affect, normal judgment/insight, normal mood Discharge Instructions PCPPCP:PCP: Ginger Hirsch DO )( Discharge to: Home/Self Care Discharge InstructionsAdditional Discharge Routines: Attending Follow-Up, Wound/Dressing Care)( Diet: Regular)( Activity: As Tolerated, No [place] for 6 Wks, No Lifting >20lbs, No Strenuous Activity)( Wound/dressing care: Keep wound clean and dryPrescriptions: e-prescribeRx drug database reviewed: yesDischarge management: less than 30 mins Follow-up AppointmentsAttending Physician: Attending Physician: Blank Ramos MD Attending physician follow up timeframe: In 1-2 weeks at 0459 RPT #:[id number] OF REPORT DSDischarge [id number]:06:00F.[id number] ailable for patient vzwgRWYMWAMLHTEPYR1858-76-88N84:59:33 [facility] 2022-12-16 10:20:00 [id number]+BdU gEpI6btmQWlhICjkTLWzq0pVZeb1482-08-15Z96:20:00 [facility] ([facility])Gynecology Post Prog NoteREPORT#:[id number] REPORT STATUS: SignedDATE:12/16/22 TIME: 1020 PATIENT: CHARMAINE XAVIER UNIT #: [id number]#: [id number] [address] [birth year] AGE: 27 SEX: F ATTEND: [facility] Ramos [facility] AUTHOR: Blank Ramos MD * ALL edits or amendments must be made on the electronic/computer document * GeneralORM Surgeries: Surgery Date and Time: 12/15/2022 1230 Primary Procedure: MYOMECTOMY LAPAROTOMY Post-op: day 1 SubjectivePatient reports:Yes: abdominal pain, ambulating, flatus/bowel movement, pain controlled, tolerating diet. No: complaints, chills, fever, nausea, vaginal bleeding, vomiting. Comments:Pt found during rounds to be ambulating in the hallway with Mom. Reports that she has tolerated clears and is about to eat breakfast. Pain is well controlled. Objective GeneralVS/I O:Last Documented: Result Date Time Pulse Ox 100 12/16 08 B/P 102/68 12/16 08 B/P Mean 79.2 12/16 08 Temp 97.9 12/16 08 Pulse 61 12/16 0802 Resp 17 12/16 0802 O2 Delivery Room air 12/16 0432 O2 Flow Rate 10 12/15 1515 24 hour I O ending at 0700: 12/16 0700 12/15 1900 Intake Total 1200.00 1650.00 Output Total 2800 475 Balance -1600.00 1175.00 Intake, IV 600.00 1650.00 Intake, Oral 600 Output, 200 Estimated Blood Loss Output, Urine 2800 275 Patient 165 lb Weight Weight Standing scale Measurement Method PATIENT WEIGHT: Weight (lb): 164Weight (oz): 14.49Weight (kg): 74.800 Physical ExamGeneral appearance: alert, awake, oriented, no acute distress, pleasant, conversational, mental status normal, no respiratory distressAbdomen: non-tender, softExtremities: full range of motion, moves allNeuro/ATTACHER: alert, oriented X 3, normal speechSkin: dry, intactPsychiatry: normal affect, normal judgement/insight, normal mood Current MedicationsMedications:Active Meds + DC'd Last 24 HrsKetorolac Tromethamine (TORADOL 30 MG SYRINGE) 30 MG Q6H IV Acetaminophen (TYLENOL EXTRA STRENGTH) 1,000 MG Q8H PO Hydromorphone HCl (DILAUDID) 0.5 MG Q3H PRN PRN IV Ondansetron HCl (ZOFRAN 2 MG/ML 4 MG SYR) 4 MG Q4H PRN PRN IV Sodium Chloride (SODIUM CHLORIDE 0.9% - 1000 ML) 1,000 ML ASDIR IV (DC) Tramadol HCl (ULTRAM 50 MG) 50 MG Q6H PRN PRN PO Ketorolac Tromethamine (TORADOL 60 MG SYRINGE) 0 .STK-MED ONE .ROUTE (DC) Ephedrine Sulfate (ePHEDrine SULFATE 50 MG/ML 1ML AMP) 0 .STK-MED ONE .ROUTE (DC) Glycopyrrolate (ROBINUL 0.2 MG/ML 5 ML VIAL) 0 .STK-MED ONE .ROUTE (DC) Neostigmine [place] (NEOSTIGMINE METHYLSULFATE 1:1000 10 ML VIAL) 0 .STK-MEDONE .ROUTE (DC) Vecuronium [place] (NORCURON 10 MG/VIAL) 0 .STK-MED ONE .ROUTE (DC) Dexamethasone Sodium Phosphate (Decadron 4 Mg/mL Inj) 0 .STK-MED ONE .ROUTE (DC) Fentanyl Citrate (SUBLIMAZE 2 ML) 50 MCG PACU ASDIR PRN PRN IV (DC) Hydromorphone HCl (DILAUDID) 0.5 MG PACU Q10MIN PRN PRN IV (DC) Ondansetron HCl (ZOFRAN 2 MG/ML 4 MG SYR) 4 MG PACU ONCE PRN IV (DC) Oxycodone HCl (OXYIR 5MG TAB) 5 MG PACU ONCE PRN PO (DC) Promethazine HCl (PROMETHAZINE HCL 25 MG) 12.5 MG PACU ONCE PRN IM (DC) Sodium Chloride (Sodium Chloride 100 mL - OR/NICU STOCK) 100 ML .STK-MED ONE INJ (DC) Vasopressin (VASOPRESSIN 20 UNITS/ML) 0 .STK-MED ONE .ROUTE (DC) Bupivacaine HCl (SENSORCAINE PF 0.25% 30 ML) 0 .STK-MED ONE .ROUTE (DC) Bupivacaine HCl (MARCAINE PF 0.5% 30 ML) 0 .STK-MED ONE .ROUTE (DC) Dexamethasone Sodium Phosphate (Decadron 4 Mg/mL Inj) 0 .STK-MED ONE .ROUTE (DC) Fentanyl Citrate (SUBLIMAZE 2 ML) 0 .STK-MED ONE .ROUTE (DC) Lidocaine HCl (XYLOCAINE 2% INJ PF 5 ML) 0 .STK-MED ONE .ROUTE (DC) Midazolam HCl (VERSED 2 MG/2 ML VIAL) 0 .STK-MED ONE .ROUTE (DC) Ondansetron HCl (ZOFRAN 2 MG/ML 4 MG SYR) 0 .STK-MED ONE .ROUTE (DC) Propofol (DIPRIVAN 10MG/ML 20 ML AMP) 0 .STK-MED ONE .ROUTE (DC) Rocuronium [place] (ZEMURON 10 MG/ML 5 ML VIAL) 0 .STK-MED ONE .ROUTE (DC) Acetaminophen (TYLENOL EXTRA STRENGTH) 1,000 MG PREOP PO (DC) Cefazolin Sodium (ANCEF 2 GM VIAL) 2 GM PREOP IV (DC) Sodium Chloride (SODIUM CHLORIDE 0.9% 100 mL MBP) 100 MLGabapentin (NEURONTIN 400MG CAP) 400 MG PREOP PO (DC) Lactated Ringer's (LACTATED RINGERS) 1,000 ML ASDIR IV (DC) Omeprazole/Sodium Bicarbonate (ZEGERID 20 MG CAPSULE) 1 CAP PREOP PO (DC) Ondansetron HCl (ZOFRAN 2 MG/ML 4 MG SYR) 4 MG PREOP IV (DC) Scopolamine (TRANSDERM-SCOP PATCH) 1 MG PREOP TRANSDERM (DC) ResultsFindings/Data:Laboratory Tests 12/16 0540 Hematology WBC (6.5 - 12.3 K/mm3) 9.7 RBC (3.51 - 4.69 M/mm3) 3.70 Hgb (10.1 - 13.8 g/dL) 11.4 Hct (32.5 - 41.8 %) 33.4 MCV (84.6 - 96.6 fL) 90.3 MCH (27.3 - 33.9 pg) 30.8 MCHC (32.0 - 34.2 gm/dL) 34.1 RDW (12.2 - 16.3 %) 12.1 L Plt Count (134 - 363 K/mm3) 312 MPV (9.2 - 12.7 fL) 10.1 Neut % (Auto) (57.9 - 77.3 %) 74.0 Lymph % (Auto) (14.5 - 29.7 %) 16.1 Graves % (Auto) (3.6 - 10.2 %) 9.5 Eos % (Auto) (0.0 - 3.0 %) 0.0 Baso % (Auto) (0.1 - 0.9 %) 0.2 Neut # (Auto) (K/mm3) 7.2 Lymph # (Auto) (K/mm3) 1.6 Graves # (Auto) (K/mm3) 0.9 Eos # (Auto) (K/mm3) 0 Baso # (Auto) (K/mm3) 0.0 Laboratory Tests 12/15 1046 Urines Urine HCG, Qual NEGATIVE Diagnosis, Assessment PlanFree Text A P:Pt is a 27 yo G0 POD #1 s/p abdominal myomectomy doing well- Pt AFVSS, meeting milestones appropriately. Pain is well controlled. Encouraged increased PO intake today. Continue to ambulate as tolerated.- H/H with appropriate drop without anemia- Will re-assess this PM for possible d/c today vs tomorrow at 1023 RPT #:[id number] OF REPORT PRProgress [id number]:20:00F.[id number] able for patient ufblXKTEPPFLIBQZIE4090-94-36I69:24:04 [facility] 2022-12-15 14:43:00 [id number] [id number]l d6QiSPMTGMoLLrMvdKmb4m5KveF7074-11-40P45:43:00 [facility] ([facility])Full Op NoteREPORT#:[id number] REPORT STATUS: SignedDATE:12/15/22 TIME: 1443 PATIENT: CHARMAINE XAVIER UNIT #: [id number]#: [id number] [address] [birth year] AGE: 27 SEX: F ATTEND: Blank Ramos MDADM AUTHOR: Blank Ramos MD * ALL edits or amendments must be made on the electronic/computer document * Operative ReportORM Surgeries: Surgery Date and Time: 12/15/2022 1230 Primary Procedure: MYOMECTOMY LAPAROTOMY Start date: 12/15/22Start time: 1300Pre-procedure diagnosis:Multifibroid uterus, Dysmenorrhea, Menorrhagia, Pelvic PainPost-procedure diagnosis:Multifibroid uterus, Dysmenorrhea, Menorrhagia, Pelvic PainProcedures performed:Abdominal MyomectomyTechnique/Procedure:Patient was taken to the operating room where general anesthesia was obtained. She was placed in the dorsal supine position with a pillow under her knees. A arthur catheter was placed. She was prepped and draped in the usual sterile fashion. A time out was performed.A Pfannenstiel skin incision was made with the scalpel. The fascia was incised with the scalpel, and the incision was extended sharply bilaterally with the Benitez scissors. The rectus muscles were split in the midline bluntly. The peritoneum was entered bluntly. An Max retractor was placed. The fibroid uterus was palpated, and with continued gentle manipulation was able to be exteriorized. The large fundal pedunculated fibroid was doubly clamped at the stalk then sharply . The stalk was tied with 2-0 vicryl then a runningstitch of 3-0 monocryl. Each fibroid site in sequential fashion was then attended to with infiltration of a dilute vasopressin solution (20 units in 100 mL of sterile saline) under the serosa. Next an incision was made overlying thefibroid with the bovie cautery, then the fibroids were bluntly and removed. The myometrial defect was reapproximated with running 2-0 V-loc suturethen the serosa was reapproximated with 3-0 monocryl in a baseball stitch. Hemostasis was noted at each site. After removal of all fibroids, the uterus was replaced into the abdomen. The retractor was removed. Seprafilm was placedover the uterine incisions. Hemostasis was again noted. The peritoneum was reapproximated with 3-0 vicryl in a running stitch. The muscles were inspected and noted to be hemostatic. The fascia was closed with a running suture of 0 vicryl. The subcutaneous space was reapproximated with 3-0 vicryl. The skin was closed with 4-0 monocryl in a subcuticular stitch. Steri strips and steriledressing were applied. The patient tolerated the procedure well. She was awakened from general anesthesia and transported to the recovery room in stable condition. Primary Surgeon: Patricia Ramos(s): Sae Barakattheleanne: general anesthesia, local anesthesia (Tap block by Anesthesia)Operative findings:Enlarged multifibroid uterus with a large fundal pedunculated 16 cm fibroid. A total of 8 fibroids were removed with a combined weight of 1126g (2.5#). Two posterior (one 4 cm, one 1 cm), two fundal (1-2 cm), and four anterior fibroids (one 4 cm, three smaller). There were at least three fibroids remaining: two < 1 cm intramural fibroids that were palpable but remote from other incisions as well as one approximately 3 cm left lower uterine segment intramural fibroid near the cervical vessels. The remainder of the uterus and ovaries were normal in appearance. The bilateral fallopian tubes appeared grossly dilated throughout with small paratubal adhesions concerning for prior infection or inflammation.At no point was the uterine cavity entered.Complications: noneEstimated blood loss in ml's: 200 mLSpecimens removed/altered: fibroidsImplant(s): seprafilmFluids:1500 mLUrine output:150 mLApproach: openDisposition: PACUCounts: Sponge count: correct Instrument count: correct Needle count: correct at 2037 RPT #:[id number] OF REPORT OPOperative [id number]:43:00F.[id number] ilable for patient ovsuHKDVYIFHHUMFZC1405-89-12V73:37:34 [facility] 2022-12-15 12:01:00 [id number] NNS6cFEF0003pq9gtrI9TGl8NJn1519-35-98W79:01:00 [facility] ([facility])History Physical - AdultREPORT#:[id number] REPORT STATUS: SignedDATE:12/15/22 TIME: 1201 PATIENT: CHARMAINE XAVIER UNIT #: [id number]#: [id number] ROOM[facility]BED: [facility]-ADOB: [birth year] AGE: 27 SEX: F ATTEND: Blank Ramos MDADM AUTHOR: Blank Ramos MD * ALL edits or amendments must be made on the electronic/computer document * History of Present Illness HPIChief complaint:fibroidsPCP:PCP: Ginger Hirsch DO HPI:Pt is a 27 yo G0 with multifibroid uterus causing heavy, painful periods as wellas pelvic pressure and urinary frequency who presents today for surgical removal. She has tried and failed medical therapy. HistoryAdditional medical history:asthma, fibroid uterusAdditional surgical history:DeniesAdditional family history:NoncontributoryAlcohol use: Denies EtOH useDrug use: Denies recreational drugsSmoking status for patients 13 years old or older: Never Smoker Medication/Allergy-Vaccine HxMedications:Home Medications: Medication Dose/Rte/Freq Days Qty Entered Last Max Daily Dose Reviewed No Known Home Medications Current Hospital Medications:Anti-Infective Agents Sig/Beto Start time Last Medication Dose Route Stop Time Status Admin Cefazolin Sodium 2 GM PREOP 12/15 0500 CKD 12/15 (ANCEF 2 GM VIAL) IV 02/13 459 1130 Sodium Chloride 100 ML (SODIUM CHLORIDE 0.9% 100 mL MBP) Autonomic Drugs Sig/Beto Start time Last Medication Dose Route Stop Time Status Admin Rocuronium [place] 0 .STK-MED ONE 12/15 1143 DC (ZEMURON 10 MG/ML 5 .ROUTE ML VIAL) Cardiovascular Drugs Sig/Beto Start time Last Medication Dose Route Stop Time Status Admin Lidocaine HCl 0 .STK-MED ONE 12/15 1143 DC (XYLOCAINE 2% INJ PF .ROUTE 5 ML) Central Nervous System Agents Sig/Beto Start time Last Medication Dose Route Stop Time Status Admin Fentanyl Citrate 0 .STK-MED ONE 12/15 1143 DC (SUBLIMAZE 2 ML) .ROUTE Midazolam HCl 0 .STK-MED ONE 12/15 1143 DC (VERSED 2 MG/2 ML .ROUTE VIAL) Propofol 0 .STK-MED ONE 12/15 1143 DC (DIPRIVAN 10MG/ML 20 .ROUTE ML AMP) Acetaminophen 1,000 MG PREOP 12/15 0500 CKD 12/15 (TYLENOL EXTRA PO 02/13 459 1131 STRENGTH) Gabapentin 400 MG PREOP 12/15 0500 CKD 12/15 (NEURONTIN 400MG CAP) PO 02/13 459 1131 Electrolytic, Caloric, And Cara Sig/Beto Start time Last Medication Dose Route Stop Time Status Admin Sodium Chloride 100 ML .STK-MED ONE 12/15 1200 DC (Sodium Chloride 100 INJ mL - OR/NICU STOCK) Lactated Ringer's 1,000 ML ASDIR 12/15 0500 AC (LACTATED RINGERS) IV 02/12 0959 Eye, Ear, Nose And Throat (Een Sig/Beto Start time Last Medication Dose Route Stop Time Status Admin Dexamethasone Sodium 0 .STK-MED ONE 12/15 1144 DC Phosphate .ROUTE (Decadron 4 Mg/mL Inj) Gastrointestinal Drugs Sig/Beto Start time Last Medication Dose Route Stop Time Status Admin Ondansetron HCl 0 .STK-MED ONE 12/15 1143 DC (ZOFRAN 2 MG/ML 4 MG .ROUTE SYR) Omeprazole/Sodium 1 CAP PREOP 12/15 0500 AC 12/15 Bicarbonate PO 12/15 1800 1131 (ZEGERID 20 MG CAPSULE) Ondansetron HCl 4 MG PREOP 12/15 0500 CKD 12/15 (ZOFRAN 2 MG/ML 4 MG IV 02/13 0459 1131 SYR) Scopolamine 1 MG PREOP 12/15 0500 CKD 12/15 (TRANSDERM-SCOP TRANSDERM 02/13 045 1131 PATCH) Hormones And Synthetic Substit Sig/Beto Start time Last Medication Dose Route Stop Time Status Admin Vasopressin 0 .STK-MED ONE 12/15 1200 DC (VASOPRESSIN 20 .ROUTE UNITS/ML) Local Anesthetics (Parenteral) Sig/Beto Start time Last Medication Dose Route Stop Time Status Admin Bupivacaine HCl 0 .STK-MED ONE 12/15 1144 DC (SENSORCAINE PF .ROUTE 0.25% 30 ML) Bupivacaine HCl 0 .STK-MED ONE 12/15 1144 DC (MARCAINE PF 0.5% 30 .ROUTE ML) Allergies:Coded Allergies:No Known Allergies (05/21/19) Review of SystemsAll systems rev neg: except as marked Physical ExamVS/I OVital Signs: Date Time Temp Pulse Resp B/P B/P Pulse O2 O2 Flow FiO2 Mean Ox Delivery Rate 12/15 1108 98.1 81 17 140/87 98 Room air PATIENT WEIGHT: Weight (lb): 164Weight (oz): 14.49Weight (kg): 74.800 General appearance: alert, awake, oriented, no acute distress, pleasant, conversational, mental status normal, no respiratory distressHead/Eyes: atraumatic, clear cornea, EOMI, normocephalicENT: moist mucosal membranesNeck: full range of motionAbdomen/GI: soft, non-tender, no guarding, no reboundExtremities: moves allMusculoskeletal: full range of motionNeuro/ATTACHER: alert, oriented X 3, NL cerebellar function, normal speechPsychiatry: normal affect, normal judgment/insight, normal mood ResultsFindings/Data:Laboratory Tests Test Result Date Time Hematology WBC (6.5 - 12.3 K/mm3) 7.1 / 1400 RBC (3.51 - 4.69 M/mm3) 4.44 02/ 1400 Hgb (10.1 - 13.8 g/dL) 13.8 02/ 1400 Hct (32.5 - 41.8 %) 40.4 / 1400 MCV (84.6 - 96.6 fL) 91.0 02/ 1400 MCH (27.3 - 33.9 pg) 31.1 / 1400 MCHC (32.0 - 34.2 gm/dL) 34.2 / 1400 RDW (12.2 - 16.3 %) 12.3 / 1400 Plt Count (134 - 363 K/mm3) 326 02/ 1400 MPV (9.2 - 12.7 fL) 10.2 / 1400 Neut % (Auto) (57.9 - 77.3 %) 59.2 02/ 1400 Lymph % (Auto) (14.5 - 29.7 %) 31.4 H 02/ 1400 Graves % (Auto) (3.6 - 10.2 %) 7.9 / 1400 Eos % (Auto) (0.0 - 3.0 %) 0.8 / 1400 Baso % (Auto) (0.1 - 0.9 %) 0.6 / 1400 Neut # (Auto) (K/mm3) 4.2 / 1400 Lymph # (Auto) (K/mm3) 2.2 / 1400 Graves # (Auto) (K/mm3) 0.6 / 1400 Eos # (Auto) (K/mm3) 0.06 / 1400 Baso # (Auto) (K/mm3) 0.0 /1399 Serology SARS-CoV-2 Ag (Rapid) (NEGATIVE) NEGATIVE 12/12 1401 Urines Urine HCG, Qual NEGATIVE 12/07 1342 Radiology data:TVUS 07/20: Uterus 13.2 cm length with fibroids: 5.7 cm intramural/submucosa lower uterine segment4.8 cm anterior intramural4.4 cm posterior subserosal/intramural2.3 cm fundal pexadej21.7 cm pedunculated fibroid Diagnosis, Assessment Plan Free Text DxA P NotesFree Text DxA P Notes:Pt is a 27 yo G0 with multifibroid uterus causing heavy, painful periods as wellas bulk symptoms here for surgical resection due to symptoms- Pt counseled in the office on the risks and benefits of myomectomy and desiresto proceed with abdominal myomectomy. All questions answered.- T S- Ancef coat ironer hand to OR at 1207 RPT #:[id number] OF REPORT HPHistory and physical uorzjfudjtm2504-00-71N89:01:00F.[id number] AVAvailable for patient zqskBJAYCRIJMXECFA5582-24-22L99:08:19 [facility] 2019-05-21 20:43:00 [id number] zVfsyTi3sqI4WNgQcUbmgz+3ltAZs T20fR4Xi5AWWCLIjfik/+sOUmvzfwm3k3O9603-46-06T31:4 3:00 [facility] ([facility])EMERGENCY PROVIDER REPORTREPORT#:[id number] REPORT STATUS: SignedDATE:05/21/19 TIME: 2042 PATIENT: CHARMAINE XAVIER UNIT #: [id number]#: [id number] ROOM/BED:AGE: 24 SEX: F PCP PHYS: No Primary or Family PhysicianSERVICE AUTHOR: Elio Gibson MD * ALL edits or amendments must be made on the electronic/computer document * HPI- Female GeneralConfirmed Patient YesPatient Type New patientInitial Greet Date/Time 05/21/192022 PresentationChief Complaint Abdominal painHx Obtained From Patient)( Sudden in Onset? NoOnset Occurred Days agoSymptom Duration Since onsetProgression since Onset IntermittentCaused by No trauma by historyLocation SuprapubicQuality PainfulRadiationDoes not radiate. Severity: Onset MildSeverity: Current MildAssociated withDenies: Chills, Constipation, Fever, Nausea, Vomiting. Relieved by Nothing ContextImmunization Status General UnknownRecent Healthcare No recent doctor visit, No recent hospitalization Free Text HPI NotesFree Text HPI Oghup97an G0 F without sig. PMH p/w mild suprapubic abd pain x 5 d. Pain is non-radiating and intermittent. No modifying factors. Associated vaginal discharge (white/yellow). Denies dysuria, fever, chills, urinary frequency, , or N/V. Advil alleviates pain. LMP 05/13/19. Pt is on OCP DRSP/EE 3/0.03mg. Pt states she has never had sexual intercourse. Portions of this section were scribed by Palmira Willson on 05/21/19 at 2337 Review of Systems ROS StatementsAll systems rev neg except as marked.Complete sys rev neg except as marked. Basic Review of SystemsBasic ROS EYES: No redness, RESP: No SOB, CV: No chest pain, HEM: No bleeding/bruising, PSYCH: NL thought content Focused Review of SystemsConstitutionalDenies: Chills, Fever. Ears/Nose/ThroatDenies: Nasal congestion, Sore throat. GIReports: Abdominal pain. Denies: Constipation, Diarrhea, Nausea, Vomiting. FemaleReports: Vaginal discharge. Denies: Dysuria, Flank pain, , Vaginal bleeding - abnl. MusculoskeletalDenies: Back pain, Extremity swelling. SkinDenies: Rash, Swelling. NeurologicDenies: Dizziness, Lightheaded. Additional Review of SystemsHematologicDenies: Bleeding, Bruising. Portions of this section were scribed by Palmira Willson on 05/21/19 at 2104 Past Medical History - AdultStated Complaint LOW ABDOMINAL PAINAllergiesCoded Allergies:No Known Allergies (05/21/19) Home MedicationsReported MedicationsDROSPIR/ETH ESTRA/LEVOMEFOL CA (BEYAZ) 1 TAB PO DAILY MULTIVITAMIN (MULTI-DAY VITAMIN) 1 TAB PO DAILY CRANBERRY EXTRACT 300 MG PO DAILY Review of Nursing Notes Rev avail, and agreePt reports no significant: Past medical history, Past surgical historySmoking status for patients 13 years old or older: Never Smoker Portions of this section were scribed by Palmira Willson on 05/21/19 at 2104 Physical Exam Vital SignsVital SignsFirst Documented: Result Date Time Pulse Ox 98 05/21 2020 B/P 129/87 05/21 2020 B/P Mean 101 05/21 2020 O2 Delivery Room air 05/21 2020 Temp 36.7 05/21 2020 Pulse 101 05/21 2020 Resp 16 05/21 2020 Last Documented: Result Date Time Pulse Ox 100 05/22 125 B/P 132/86 05/22 125 B/P Mean 101 05/22 125 Temp 36.8 05/22 125 Pulse 109 05/22 012 Resp 16 05/22 125 O2 Delivery Room air 05/21 2020 Review of Vital Signs Reviewed Basic Physical ExamBasic PE GEN: Well appearing/NAD, HEAD: Atraumatic/NC, EYES: PERRL, conj clear, ENT: Membranes moist, NECK: Supple, RESP: No resp distress, CV: Reg rate rhythm, ABD: Soft/non-tender, EXT: No gross abnormality, SKIN: No rashes, warm/dry, NEURO: alert oriented, NEURO: gross movement NL, PSYCH: NL thought content Focused PEGenitourinary General Communications Controller present Female Genitourinary External genitalia NL, No bleeding, Os closed Text/Dict Notesyellow malodorous discharge Pelvic Exam Cervical motion tend. Portions of this section were scribed by Palmira Willson on 05/21/19 at 2333 Interpretation Diagnostics Lab Results InterpretationResultsLaboratory Tests 05/21/192049:[Embedded Image Not Available]Laboratory Tests: 05/21 Chemistry Sodium (135 - 145 mEq/L) 137 Potassium (3.5 - 5.0 mEq/L) 3.5 Chloride (100 - 115 mEq/L) 99 L Carbon Dioxide (22 - 31 mEq/L) 31 Anion Gap (10 - 20) 10.80 BUN (7 - 18 mg/dL) 6 L Creatinine (0.5 - 1.0 mg/dL) 0.8 Glomerular Filtr Rate (>60 ml/min) 97 Glucose (65 - 110 mg/dL) 92 Calcium (8.4 - 10.2 mg/dL) 9.0 Hematology WBC (6.6 - 12.1 K/mm3) 12.7 H RBC (3.45 - 5.01 M/mm3) 4.50 Hgb (10.7 - 13.9 g/dL) 13.1 Hct (32.1 - 42.1 %) 39.7 MCV (84.1 - 94.8 fL) 88 MCH (27 - 35 pg) 29.1 MCHC (32.2 - 34.1 gm/dL) 33.0 RDW (12.4 - 16.5 %) 12.6 Plt Count (133 - 385 K/mm3) 358 MPV (9.1 - 12.7 fl) 10.0 Neut % (Auto) (56.5 - 79.4 %) 64.7 Lymph % (Auto) (14.3 - 34.3 %) 26.0 Graves % (Auto) (5.1 - 10.4 %) 8.0 Eos % (Auto) (0.1 - 3.0 %) 0.5 Baso % (Auto) (0.1 - 1.0 %) 0.6 Neut # (Auto) (K/mm3) 8.2 Lymph # (Auto) (K/mm3) 3.3 Graves # (Auto) (K/mm3) 1.0 Eos # (Auto) (K/mm3) 0.06 Baso # (Auto) (K/mm3) 0.1 Immature Plt Fraction (0.0 - 10.8 %) 0.0 Urines Urine Color (YELLOW) COLORLESS Urine Appearance (CLEAR) CLEAR Urine pH (5 - 9) 6.0 Ur Specific Parkin (1.001 - 1.035) 1.001 Urine Protein (NEG) NEGATIVE Urine Glucose (UA) (NEG) NEGATIVE Urine Ketones (NEG) TRACE H Urine Blood (NEG) NEG Urine Nitrite (NEG) NEG Urine Bilirubin (NEG) NEGATIVE Urine Urobilinogen (NEG mg/dL) NEGATIVE Ur Leukocyte Esterase (NEG) TRACE H Urine RBC (NONE SEEN #/hpf) 0-2 Urine WBC (NONE SEEN #/hpf) 0-2 Ur Epithelial Cells (RARE - FEW #/HPF) FEW Urine Bacteria (RARE - FEW /HPF) NEGATIVE Urine Mucus (NONE SEEN) RARE Urine HCG, Qual NEGATIVE Microbiology: Date/Time Procedure - Status Source Growth 05/21 2130 GC DNA Probe - COMP CERVIX 05/21 2130 Chlamydia DNA Probe (ELBA) - COMP CERVIX 05/21 2130 Wet Prep - COMP VAGINAL 05/21 2049 Urine Culture - RECD URINE Recent Impressions:ULTRASOUND - US TRANSVAGINAL W/PELVIS 05/21 2229 Report Impression - Status: SIGNED Entered: 05/22/2019 013 IMPRESSION:1. Enlarged fibroid uterus.2. A 1.8 x 1.4 x 1.6 cm nodule appears to arise from the posterioruterine wall and project into the uterine lumen in the left fundus. While this most likely represents a submucosal fibroid tumor,endometrial polyp would be included in the differential diagnosis.3. A fluid-filled tubular structure is imaged in the left adnexa,possibly representing left hydrosalpinx.4. No sonographic abnormalities of the ovaries are identified. SL: 131Impression By: Kelli Baker MDULTRASOUND - US PELVIS COMPLETE 05/21 2229 Report Impression - Status: SIGNED Entered: 05/22/2019131 IMPRESSION:1. Enlarged fibroid uterus.2. A 1.8 x 1.4 x 1.6 cm nodule appears to arise from the posterioruterine wall and project into the uterine lumen in the left fundus. While this most likely represents a submucosal fibroid tumor,endometrial polyp would be included in the differential diagnosis.3. A fluid-filled tubular structure is imaged in the left adnexa,possibly representing left hydrosalpinx.4. No sonographic abnormalities of the ovaries are identified. SL: 131Impression By: Kelli Baker MD Point of Care TestingPulse Oximetry Pulse Ox % 98 On: Room air Interpretation Interpreted by nh, Pulse oximetry normal Time 2019 Portions of this section were scribed by Palmira Willson on 05/21/19 at 2337 Re-Evaluation MDM ED CourseMedication(s) OrderedMedication(s) Ordered:Anti-Infective Agents Sig/Beto Start time Last Medication Dose Route Stop Time Status Admin Ceftriaxone Sodium 250 MG ONCE ONE 05/21 2345 DC 05/22 IM 05/21 2346 0002 Azithromycin 1,000 MG X1ED STA 05/21 2332 DC 05/22 PO 05/21 2333 0002 Cardiovascular Drugs Sig/Beto Start time Last Medication Dose Route Stop Time Status Admin Lidocaine HCl 5 ML .STK-MED ONE 05/21 2357 DC 05/22 IM 0003 Central Nervous System Agents Sig/Beto Start time Last Medication Dose Route Stop Time Status Admin Acetaminophen 500 MG X1ED STA 05/21 2044 DC 05/21 PO 05/21 Electrolytic, Caloric, And Cara Sig/Beto Start time Last Medication Dose Route Stop Time Status Admin Sodium Chloride 1,000 ML X1ED STA 05/21 2133 DC 05/21 IV 05/21 Portions of this section were scribed by Palmira Willson on 05/21/19 at 2336 Patient Discharge Departure Vital Signs/ConditionVital SignsFirst Documented: Result Date Time Pulse Ox 98 05/21 2020 B/P 129/87 05/21 2020 B/P Mean 101 05/21 2020 O2 Delivery Room air 05/21 2020 Temp 36.7 05/21 2020 Pulse 101 05/21 2020 Resp 16 05/21 2020 Last Documented: Result Date Time Pulse Ox 100 05/22 0125 B/P 132/86 05/22 012 B/P Mean 101 05/22 0125 Temp 36.8 05/22 012 Pulse 109 05/22 0125 Resp 16 05/22 0125 O2 Delivery Room air 05/21 2020 All vital signs available at the time of this entry have been reviewed. Condition Stable Clinical ImpressionClinical ImpressionPrimary Impression: GonorrheaSecondary Impressions: PID (acute pelvic inflammatory disease) Disposition DecisionDischarge )( Discharged to Home Yes )( Time 2336 )( Date 05/21/19 Discharge/Care PlanCounseled Regarding Diagnosis, Lab results, Imaging studies, Prescriptions, Needfor follow-up, When to return to EDPrescriptionsdoxycycline, motrin Prescriptions Reviewed Risks, Benefits, Alternative treatment Discharge NoteI have spoken with the patient and/or caregivers. I have explained the patient'scondition, diagnoses and treatment plan based on the information available to meat this time. I have answered the patient's and/or caregiver's questions and addressed any concerns. The patient and/or caregivers have as good an understanding of the patient's diagnosis, condition and treatment plan as can beexpected at this point. The vital signs have been stable. The patient's condition is stable and appropriate for discharge from the emergency department. The patient will pursue further outpatient evaluation with the primary care physician or other designated or consulting physician as outlined in the discharge instructions. The patient and/or caregivers are agreeable to this planof care and follow-up instructions have been explained in detail. The patient and/or caregivers have received these instructions in written format and have expressed an understanding of the discharge instructions. The patient and/or caregivers are aware that any significant change in condition or worsening of symptoms should prompt an immediate return to this or the closest emergency department or a call to 911. Supervising Physician Note Scribe StatementPalmira Willson, 05/21/192042, scribing for and in the presence of Dr. Gibson.Signed By: Palmira Willson, 05/21/192042 Provider Scribed StatementI personally performed the services described in this documentation and reviewedthe documentation that was dictated to the scribe(s) in my presence, and it accurately records my words and actions. Elio Gibson, 05/21/19 Portions of this section were scribed by Palmira Willson on 05/21/19 at 2337 at 0215RPT #:[id number] OF REPORTEDEmerbaptist health rehabilitation institute department [id number] ilable for patient [id number] [facility]
[2023-11-25 12:40] LABS: Hematocrit 19.4 % (36.0-45.0); MCV 53.3 fL (80-100); MPV 8.2 fL (7.6-11.3); Platelets 617 thou/uL (152-406); RBC Red Blood Cell Count 3.63 M/uL (3.86-4.86)
[2023-11-25 13:05] LABS: ALT/SGPT 15 U/L (13-56); AST/SGOT 15 U/L (15-37); Albumin 3.4 g/dL (3.4-5.0); Alkaline Phosphatase 26 U/L (45-117); BUN Blood Urea Nitrogen 7 mg/dL (7-18); Bicarbonate 28 mEq/L (21-32); Bilirubin Total 0.3 mg/dL (0.2-1.0); Glomerular Filtration Rate 121 ml/min (=/>90); Glucose Level 97 mg/dL (74-106); NT PRO-BNP 38 pg/mL (<125); Potassium 3.8 mEq/L (3.5-5.1); Protein, Total 7.3 g/dL (6.4-8.2); Sodium Level 137 mEq/L (136-145)
[2023-11-25 13:06] LABS: Bilirubin Direct < 0.1 mg/dL (0-0.2); Bilirubin Indirect, Calculated ND mg/dL (0.2-0.8); Troponin High Sensitivity < 3.0 pg/mL (<58.9)
[2023-11-25 13:37] LABS: Anisocytosis 1+; Blood Morphology Comment NOTED (NOT SEEN); Hypochromasia 1+; Platelet Estimate INCR
[2023-11-25 13:38] LABS: Poikilocytosis 2+
[2023-11-25 14:02] LABS: RBC Red Blood Cell Count 3.46 M/uL (3.86-4.86)
--- NOTE | 2023-11-25 14:19 | RAD REPORT ---
EXAM DESCRIPTION: RAD - Chest Single View - 11/25/2023 1:27 pm CLINICAL HISTORY: DYSPNEA COMPARISON: Chest Pa And Lat (2 Views) dated 12/06/2020; CHEST PA AND LAT 2 VIEW dated 01/06/2013 FINDINGS: Lines: None. Lungs: No evidence of edema or pneumonia. Pleural: No significant pleural effusions or pneumothorax. Cardiac: The heart size is within normal limits. Mediastinum: Within normal limits. Bones: No acute fractures. Other: None IMPRESSION: No acute cardiopulmonary disease.
[2023-11-25 14:35] LABS: Ferritin 1.7 ng/mL (8-388); Transferrin 347 mg/dL (200-360)
[2023-11-25 14:36] LABS: Iron < 10.0 ug/dL (50-170)
--- NOTE | 2023-11-25 14:43 | ER ---
Nurse's Notes [facility] Name: Charmaine Wilde Age: 28 yrs Sex: Female : 1995 Arrival Date: 11/25/2023 Time: 11:48 Bed 4 Private MD: Diagnosis: Symptomatic anemia Presentation: 11/25 12:11 Chief complaint: Patient states: SOB x 1 week ago. aa 12:11 Coronavirus screen: shortness of breath. Ebola Screen: Patient denies travel to an [facility] Ebola-affected area in the 21 days before illness onset. Initial Sepsis Screen: Does the patient meet any 2 criteria? No. Patient's initial sepsis screen is negative. Does the patient have a suspected source of infection? No. Patient's initial sepsis screen is negative. Risk Assessment: Do you want to hurt yourself or someone else? Patient reports no desire to harm self or others. Onset of symptoms was October 2023. 12:11 Method Of Arrival: Ambulatory [facility] 12:11 Acuity: JORDY 3 aa5 Triage Assessment: 12:30 General: Appears in no apparent distress. Behavior is cooperative, appropriate for age, bp anxious. Pain: Denies pain. Respiratory: Reports shortness of breath Onset: The symptoms/episode began/occurred at an unknown time. the patient reports symptoms have resolved. Historical: - Allergies: 12:11 No Known Allergies; aa5 - Home Meds: 12:11 None [Active]; aa5 - PMHx: 12:11 allergies; Asthma; aa5 - Immunization history:: Adult Immunizations unknown. - Social history:: Smoking status: Patient denies any tobacco usage or history of. - Family history:: not pertinent. Screenin:30 [facility] ED Fall Risk Assessment (Adult) History of falling in the last 3 months, bp including since admission No falls in past 3 months (0 pts). Abuse screen: Denies threats or abuse. Denies injuries from another. Nutritional screening: No deficits noted. Tuberculosis screening: No symptoms or risk factors identified. Assessment: 12:30 General: SEE TRIAGE NOTE. Cardiovascular: Rhythm is regular. Respiratory: Airway is bp patent Respiratory effort is even, unlabored, Breath sounds are clear bilaterally. 12:38 General: Appears in no apparent distress. Behavior is calm, cooperative. Pain: as6 Complains of pain in chest Quality of pain is described as pressure. Neuro: Level of Consciousness is awake, alert, obeys commands, Oriented to person, place, time, situation. Cardiovascular: Reports chest pain, Denies lightheadedness, palpitations, shortness of breath, Heart tones S1 S2 present Rhythm is regular. Respiratory: Respiratory effort is even, unlabored, Respiratory pattern is regular, symmetrical, Breath sounds are clear bilaterally. GI: No deficits noted. No signs and/or symptoms were reported involving the gastrointestinal system. : No deficits noted. No signs and/or symptoms were reported regarding the genitourinary system. EENT: No deficits noted. No signs and/or symptoms were reported regarding the EENT system. Derm: Skin is intact, is healthy with good turgor. Musculoskeletal: Circulation, motion, and sensation intact. 14:30 Reassessment: MD AT B/S, PRBC TRANSFUSION EXPLAINED TO PT AND FAMILY. bp 16:00 Reassessment: BLOOD ADMINISTRATION ON HOLD, PT AND FAMILY STATING HESITATION ON bp CONSENT. PT AGREES TO CONTINUE WITH ADMIT. Vital Signs: 12:11 BP 114 / 81; Pulse 71; Resp 18 S; Temp 98.1(O); Pulse Ox 99% on R/A; Weight 71.21 kg aa5 (R); Height 5 ft. 4 in. (R); 12:39 BP 114 / 81; Pulse 67; Resp 13 S; Pulse Ox 100% on R/A; as6 14:30 BP 116 / 83; Pulse 71; Resp 16; Pulse Ox 100% ; bp 16:30 BP 120 / 83; Pulse 61; Resp 16; Pulse Ox 100% ; bp 12:11 Body Mass Index 26.95 (71.21 kg, 162.56 cm) aa5 ED Course: 11:49 Patient arrived in ED. rg4 11:54 Tong Hudson MD is Attending Physician. rt 12:11 Arm band placed on. aa5 12:20 Triage completed. aa5 12:30 Patient has correct armband on for positive identification. bp 12:30 Inserted saline lock: 22 gauge in right antecubital area, using aseptic technique. bp Blood collected. 12:36 Jeffrey Slater, RN is Primary Nurse. bp 13:29 XRAY Chest (1 view) In Process Unspecified. EDMS 14:43 Guanako Wilson is Hospitalizing Provider. rt 16:57 No provider procedures requiring assistance completed. Patient admitted, IV remains in bp place. Administered Medications: No medications were administered Medication: 12:39 VIS not applicable for this client. as6 Outcome: 14:43 Decision to Hospitalize by Provider. rt 16:57 Admitted to Med/surg accompanied by tech, via wheelchair, room 204, with chart, Report bp called to TEDDY NORTON 16:57 Condition: stable 16:57 Instructed on the need for admit, 17:11 Patient left the ED. eb Signatures: Dispatcher [employer] EDMS Shima Xiao, RN RN adan5 Josie Saldaña4 Jeffrey Slater, RN RN Bharti Sanchez Ashby, RN RN as6 Tong Hudson MD MD rt
--- NOTE | 2023-11-25 14:43 | EDPHYS ---
Physician Documentation [facility] Name: Charmaine Wilde Age: 28 yrs Sex: Female : 1995 Arrival Date: 11/25/2023 Time: 11:48 Bed 4 Private MD: ED Physician Tong Hudson HPI: 11/25 16:57 This 28 yrs old Black Female presents to ER via Ambulatory with complaints of Shortness rt Of Breath. 16:57 Patient presents to the ED with about 3 weeks of shortness of breath, fatigue, loss of rt interest in things. The patient denies pain, that he complaints at this time, symptoms are moderate severity, no other aggravating elevating factors.. Historical: - Allergies: 12:11 No Known Allergies; aa5 - Home Meds: 12:11 None [Active]; aa5 - PMHx: 12:11 allergies; Asthma; aa5 - Immunization history:: Adult Immunizations unknown. - Social history:: Smoking status: Patient denies any tobacco usage or history of. - Family history:: not pertinent. ROS: 16:57 Cardiovascular: Negative for chest pain, palpitations, and edema, Abdomen/GI: Negative rt for abdominal pain, nausea, vomiting, diarrhea, and constipation, : Negative for injury, bleeding, discharge, and swelling, MS/Extremity: Negative for injury and deformity, Skin: Negative for injury, rash, and discoloration, Psych: Negative for depression, anxiety, suicide ideation, homicidal ideation, and hallucinations, 16:57 Constitutional: Positive for fatigue, malaise, 16:57 Respiratory: Positive for shortness of breath, Negative for cough, 16:57 Neuro: Positive for dizziness, weakness, Exam: 16:57 Constitutional: This is a well developed, well nourished patient who is awake, alert, rt and in no acute distress. Head/Face: Normocephalic, atraumatic. Chest/axilla: Normal chest wall appearance and motion. Nontender with no deformity. No lesions are appreciated. Cardiovascular: Regular rate and rhythm with a normal S1 and S2. No gallops, murmurs, or rubs. Normal PMI, no JVD. No pulse deficits. Respiratory: Lungs have equal breath sounds bilaterally, clear to auscultation and percussion. No rales, rhonchi or wheezes noted. No increased work of breathing, no retractions or nasal flaring. Abdomen/GI: Soft, non-tender, with normal bowel sounds. No distension or tympany. No guarding or rebound. No evidence of tenderness throughout. Skin: Warm, dry with normal turgor. Normal color with no rashes, no lesions, and no evidence of cellulitis. MS/ Extremity: Pulses equal, no cyanosis. Neurovascular intact. Full, normal range of motion. Neuro: Awake and alert, GCS 15, oriented to person, place, time, and situation. Cranial nerves II-XII grossly intact. Motor strength 5/5 in all extremities. Sensory grossly intact. Cerebellar exam normal. Normal gait. Psych: Awake, alert, with orientation to person, place and time. Behavior, mood, and affect are within normal limits. 16:57 ECG was reviewed by the Attending Physician. Vital Signs: 12:11 BP 114 / 81; Pulse 71; Resp 18 S; Temp 98.1(O); Pulse Ox 99% on R/A; Weight 71.21 kg aa5 (R); Height 5 ft. 4 in. (R); 12:39 BP 114 / 81; Pulse 67; Resp 13 S; Pulse Ox 100% on R/A; as6 14:30 BP 116 / 83; Pulse 71; Resp 16; Pulse Ox 100% ; bp 16:30 BP 120 / 83; Pulse 61; Resp 16; Pulse Ox 100% ; bp 12:11 Body Mass Index 26.95 (71.21 kg, 162.56 cm) aa5 MDM: 12:18 Patient medically screened. rt 16:57 Differential diagnosis: Anemia, dysrhythmia, electrolyte disturbance, hypothyroidism. rt Data reviewed: vital signs, nurses notes, lab test result(s), EKG, radiologic studies. Consideration of Admission/Observation Patient was admitted/placed on observation. Management of patient was discussed with the following: Hospitalist: Agrees to admit. Assurance Services Manager Health Care: Discussed with on-call distribution operations manager for anemia. I considered the following discharge prescriptions or medication management in the emergency department Medications were administered in the Emergency Department. See MAR. Independent interpretation of the following test(s) in the Emergency Department X-Ray: My interpretation is No consolidation seen on my interpretation of x-ray images. Test considered but Not performed: CT: Do not suspect PE, CT angiogram not indicated. Care significantly affected by the following chronic conditions: Asthma. Counseling: I had a detailed discussion with the patient and/or guardian regarding the historical points, exam findings, and any diagnostic results supporting the discharge/admit diagnosis, lab results, radiology results, the need for further work-up and treatment in the hospital. 11/25 12:25 Order name: Basic Metabolic Panel; Complete Time: 13:17 rt 11/25 12:25 Order name: CBC with Diff; Complete Time: 14:08 rt 11/25 12:25 Order name: LFT's; Complete Time: 13:17 rt 11/25 12:25 Order name: Magnesium; Complete Time: 13:17 rt 11/25 12:25 Order name: NT PRO-BNP; Complete Time: 13:17 rt 11/25 12:25 Order name: Troponin HS; Complete Time: 13:17 rt 11/25 12:25 Order name: TSH; Complete Time: 13:17 rt 11/25 12:56 Order name: Manual Differential; Complete Time: 14:08 EDNC 11/25 13:18 Order name: Type And Screen rt 11/25 13:18 Order name: Ferritin; Complete Time: 17:07 rt 11/25 13:18 Order name: TIBC; Complete Time: 17:07 rt 11/25 13:18 Order name: Retic Count; Complete Time: 14:30 rt 11/25 13:18 Order name: LDH; Complete Time: 17:07 rt 11/25 13:18 Order name: Vitamin B12; Complete Time: 17:07 rt 11/25 13:24 Order name: Bb Add On eb 11/25 14:03 Order name: Packed RBC Leukored EDNC 11/25 14:56 Order name: ABO/RH no charge; Complete Time: 17:07 EDMS 11/25 15:29 Order name: Protime (+INR) EDNC 11/25 15:29 Order name: PTT, Activated Partial Thromb EDMS 11/25 15:29 Order name: Basic Metabolic Panel EDNC 11/25 15:29 Order name: Basic Metabolic Panel EDNC 11/25 15:29 Order name: Basic Metabolic Panel EDNC 11/25 15:29 Order name: Test Serum, Qualitat EDNC 11/25 15:29 Order name: Urinalysis w/ reflexes EDNC 11/25 15:30 Order name: Basic Metabolic Panel EDNC 11/25 15:30 Order name: CBC with Automated Diff EDMS 11/25 15:30 Order name: CBC with Automated Diff EDMS 11/25 15:30 Order name: CBC with Automated Diff EDMS 11/25 15:30 Order name: CBC with Automated Diff EDMS 11/25 15:30 Order name: Magnesium EDMS 11/25 15:30 Order name: Magnesium EDMS 11/25 15:30 Order name: Magnesium EDMS 11/25 15:30 Order name: Magnesium EDMS 11/25 15:30 Order name: Phosphorus EDMS 11/25 15:30 Order name: Phosphorus EDMS 11/25 15:30 Order name: Phosphorus EDMS 11/25 15:30 Order name: Phosphorus EDMS 11/25 15:57 Order name: Urinalysis w/ reflexes bp 11/25 15:57 Order name: Test, Urine bp 11/25 16:22 Order name: Test, Urine; Complete Time: 17:07 EDMS 11/25 16:25 Order name: Urinalysis w/ reflexes; Complete Time: 17:07 EDMS 11/25 12:25 Order name: XRAY Chest (1 view); Complete Time: 14:30 rt 11/25 17:04 Order name: CT; Complete Time: 17:07 EDMS 11/25 12:25 Order name: EKG; Complete Time: 12:26 rt 11/25 15:29 Order name: CONS Physician Consult EDMS 11/25 12:25 Order name: Cardiac monitoring; Complete Time: 12:34 rt 11/25 12:25 Order name: EKG - Nurse/Tech; Complete Time: 12:34 rt 11/25 12:25 Order name: IV Saline Lock; Complete Time: 12:34 rt 11/25 12:25 Order name: Labs collected and sent; Complete Time: 12:34 rt 11/25 12:25 Order name: O2 Per Protocol; Complete Time: 12:28 rt 11/25 12:25 Order name: O2 Sat Monitoring; Complete Time: 12:29 rt EC: Rate is 74 beats/min. Rhythm is regular, Normal Sinus Rhythm with No ectopy. QRS Shallowater rt is Normal. AR interval is normal. QRS interval is normal. QT interval is normal. No Q waves. T waves are Normal. No ST changes noted. Administered Medications: No medications were administered Disposition: : Critical Care:. rt Disposition Summary: 11/25/23 14:43 Hospitalization Ordered Notes: Hospitalization Status: Observation rt Provider: Guanako Wilson rt Location: Telemetry/MedSurg (observation) rt Condition: Stable rt Problem: new rt Symptoms: have improved rt Bed/Room Type: Standard rt Room Assignment: 204(11/25/23 16:11) eb Diagnosis - Symptomatic anemia rt Forms: - Medication Reconciliation Form rt - SBAR form rt - Leadership Thank You Letter rt Critical care time excluding procedures: 16:57 Critical care time: Bedside Care: 35 minutes, Consultation: 10 minutes. Total time: 45 rt minutes Signatures: Dispatcher [employer] Shima Beach RN RN aa5 Bharti Saeed Ryan, MD MD rt Corrections: (The following items were deleted from the chart) 16:11 14:43 rt eb
--- NOTE | 2023-11-25 15:00 | P.HP ---
Patient History Date of Service: 11/25/23 Reason for admission: SOB 2/2 severe anemia History of Present Illness: Darian Wilde is a 28-year-old female with past medical history of asthma adn fibroids who presents to the ED with complaints of shortness of breath for one week. She reports becoming more weak throughout this week, not strong enough to stand up to brush her teeth. She reports a myomectomy last November 2022 without complication or need for transfusion. She was treated in [place] at [facility]. While in the ED, she was found to have severe anemia H&H 5.5/19.4, platelets 617. Transfusion ordered in the ED. CT showing several uterine fibroids as the cause of her anemia. Initial vitals: BP 114 / 81; Pulse 71; Resp 18 S; Temp 98.1(O); Pulse Ox 99% on R/A CT abd/pelvis reports "Enlarged uterus with numerous masses. These are most likely several uterine fibroids. The largest mass which is probably a submucosal fibroid distorts the endometrial canal. At least 2 lesions appear to be within the endometrial canal and could be polyps or submucosal fibroids. These lesions are presumably the source of the patient's anemia. Recommend gynecologic referral or consultation" Keara will be admitted to hospitalist service for further evaluation and treatment of severe anemia. Allergies No Known Allergies Allergy (Unverified 01/20/13 22:52) - Past Medical/Surgical History -: asthma -: myomectomy - Social History Smoking Status: Never smoker Alcohol use: No CD- Drugs: No Caffeine use: No Review of Systems General: Weakness Respiratory: Shortness of Breath Physical Examination - Physical Exam General: Alert, In no apparent distress, Oriented x3 HEENT: Atraumatic, Normocephalic, PERRLA Neck: 2+ carotid pulse no bruit, JVD not distended Respiratory: Clear to auscultation bilaterally, Normal air movement Cardiovascular: No edema, Normal pulses, Regular rate/rhythm, Normal S1 S2 Capillary refill: <2 Seconds Gastrointestinal: Normal bowel sounds, Soft and benign, Non-distended Musculoskeletal: No clubbing, No swelling, No contractures Integumentary: No rashes, No breakdown, No significant lesion Neurological: Normal speech, Normal strength at 5/5 x4 extr, Normal tone - Studies Laboratory Data (last 24 hrs) 11/25/23 11/25/23 12:30 12:30 WBC 3.40 L Hgb 5.5 L* Hct 19.4 L Plt Count 617 H Sodium 137 Potassium 3.8 BUN 7 Creatinine 0.66 Glucose 97 Magnesium 2.0 Total Bilirubin 0.3 AST 15 ALT 15 Alkaline Phosphatase 26 L Assessment and Plan - Plan Assessment and Plan Blood loss anemia secondary to fibroids Iron deficiency -CT abdomen pelvis reads "Enlarged uterus with numerous masses. These are most likely several uterine fibroids. The largest mass which is probably a submucosal fibroid distorts the endometrial canal. At least 2 lesions appear to be within the endometrial canal and could be polyps or submucosal fibroids. These lesions are presumably the source of the patient's anemia. Recommend gynecologic referral or consultation" -hgb 5.5 -transfuse 2 Units PRBC, lasix and benadryl -recheck H/H two hours post transfusion of 2 units of PRBC -Follow up with outpatient concerning these fibroids - Iron <10, Ferritin 1.7, TIBC 486, tranferrin 347, Transferrin % 2.1, Absolute Retic 0.07, % Retic 7.03, Vit B12 546, TSH 1.220 -follow up outpatient gynecology soon for intervention Thrombocytosis likely reactive -Platelets 617,000 DVT ppx SCD Full code Discharge Plan: Home Plan to discharge in: 24 Hours - Advance Directives Does patient have a Living Will: No Does patient have a Durable POA for Healthcare: No Time Spent Managing Pts Care (In Minutes): 50
[2023-11-25] MEDS ORDERED: NA CHLORIDE 0.9% 250 ML ONE (15:24)
[2023-11-25] MEDS ORDERED: NA CHLORIDE 0.9% 1,000 ML IV SCH (16:00)
[2023-11-25 16:22] LABS: Specific Gravity 1.005 (1.005-1.030)
[2023-11-25 16:24] LABS: Specific Gravity 1.005 (1.005-1.030); Urine Bacteria None Seen /HPF (<20); Urine Bilirubin NEGATIVE (Negative); Urine Blood Negative (Negative); Urine Clarity Turbid (Clear); Urine Color Colorless (Yellow); Urine Glucose NEGATIVE (Negative); Urine Protein NEGATIVE (Negative); Urine RBC <5 /HPF (None Seen); Urine Urobilinogen Normal (Normal)
--- NOTE | 2023-11-25 17:03 | RAD REPORT ---
EXAM DESCRIPTION: CTAbdomen Pelvis W Contrast - 11/25/2023 4:50 pm CLINICAL HISTORY: severe anemia COMPARISON: No comparisons TECHNIQUE: CT of the abdomen and pelvis was performed. All CT scans are performed using dose optimization technique as appropriate and may include automated exposure control or mA/KV adjustment according to patient size. FINDINGS: Lower chest: No acute abnormality. Liver: Too small to characterize liver lesions which are likely benign. Biliary: No biliary ductal dilatation. Stomach: No significant focal abnormality. Duodenum: No significant focal abnormality. Pancreas: No significant abnormality. Spleen: No significant abnormality. Adrenal: No suspicious lesions. Kidney/ureter: No hydronephrosis. No renal calculi. Retroperitoneum: No retroperitoneal adenopathy. Vascular: No aneurysm. Bowel: Normal appendix. No bowel obstruction.. Peritoneum: No ascites or free air. Bladder: Grossly unremarkable. Reproductive: Markedly enlarged uterus. There are several masses present, the largest measuring 6.1 c m which may be a submucosal fibroid. This deforms the endometrial canal. There are several other endo metrial lesions which could represent polyps or submucosal fibroids and do appear within the endometr ial canal. Possible nabothian cysts. Bones: No acute fracture. Other: n/a IMPRESSION: Enlarged uterus with numerous masses. These are most likely several uterine fibroids. Th e largest mass which is probably a submucosal fibroid distorts the endometrial canal. At least 2 lesi ons appear to be within the endometrial canal and could be polyps or submucosal fibroids. These lesio ns are presumably the source of the patient's anemia. Recommend gynecologic referral or consultation.
[2023-11-25] MEDS ORDERED: DIPHENHYDRAMINE 25 MG TAB/CAP PO ONE (17:40)
[2023-11-25] MEDS ORDERED: FUROSEMIDE 20 MG/ 2ML VIAL IV SCH (18:00)
[2023-11-25] MEDS ORDERED: ACETAMINOPHEN 500 MG TAB PO PRN (18:50)
[2023-11-25 18:52] VITALS: BMI 26.6
[2023-11-25 19:07] VITALS: O2SAT 100
[2023-11-25] MEDS ORDERED: NA CHLORIDE 0.9% 100 ML ONE (21:02)
[2023-11-25] MEDS ORDERED: DIPHENHYDRAMINE 25 MG TAB/CAP ONE (21:04)
[2023-11-26] MEDS ORDERED: NA CHLORIDE 0.9% 100 ML ONE (00:46)
[2023-11-26 03:24] VITALS: BP 100/61; TEMP 97.7
[2023-11-26 06:30] LABS: Absolute Lymphocytes (CBC) 2.2 K/uL (0.7-4.9); Hematocrit 24.7 % (36.0-45.0); Lymphocytes % 39.9 % (15.3-44.8); MCV 62.4 fL (80-100); MPV 8.3 fL (7.6-11.3); Platelets 458 thou/uL (152-406); RBC Red Blood Cell Count 3.96 M/uL (3.86-4.86)
[2023-11-26 06:41] LABS: Magnesium 2.2 mg/dL (1.6-2.4); Phosphorus 4.1 mg/dL (2.5-4.9); Potassium 3.8 mEq/L (3.5-5.1)
[2023-11-26 07:27] LABS: Anisocytosis 2+; Blood Morphology Comment NOTED (NOT SEEN); Hypochromasia 1+; Platelet Estimate ADEQ; Polychromasia 1+; White Blood Cell Scan OK (OK)
--- NOTE | 2023-11-26 17:26 | P.DS ---
Admission Date: 11/25/23 Discharge Date: 11/26/23 Disposition: ROUTINE DISCHARGE Discharge Condition: GOOD Reason for Admission: SOB 2/2 severe anemia Brief History of Present Illness: Diagnosis Severe anemia secondary to fibroids Iron deficiency anemia Thrombocytosis likely reactive to anemia HPI 11/25/23 Darian Wilde is a 28-year-old female with past medical history of asthma and fibroids who presents to the ED with complaints of shortness of breath for one week. She reports becoming more weak throughout this week, not strong enough to stand up to brush her teeth. She reports a myomectomy last November 2022 without complication or need for transfusion. She was treated in [place] at [facility]. While in the ED, she was found to have severe anemia H&H 5.5/19.4, platelets 617. Transfusion ordered in the ED. CT showing several uterine fibroids as the cause of her anemia. Initial vitals: BP 114 / 81; Pulse 71; Resp 18 S; Temp 98.1(O); Pulse Ox 99% on R/A CT abd/pelvis reports "Enlarged uterus with numerous masses. These are most likely several uterine fibroids. The largest mass which is probably a submucosal fibroid distorts the endometrial canal. At least 2 lesions appear to be within the endometrial canal and could be polyps or submucosal fibroids. These lesions are presumably the source of the patient's anemia. Recommend gynecologic referral or consultation" Keara will be admitted to hospitalist service for further evaluation and treatment of severe anemia. Hospital Course: Charmaine Wilde is a pleasant 28 year old female with a past medical history significant for asthma and fibroids who was admitted to the [facility] on 11/25/23 for shortness of breath and weakness secondary to anemia. Charmaine Wilde presented to the ED due to shortness of breath and weakness. While in the ED, she was found to be severely anemic. The CT abdomen/pelvis resulted showing several fibroids that appear to be the cause of her anemia. Iron levels are low also due to these fibroids. she were admitted for a blood transfusion. She responded well to the 2 units of PRBC transfused increasing H/H from 5.5/19.4 to 8/24.7 and decreasing platelet level from 617 to 458. She will need to follow up with her die operator for further treatment of these fibroids and for a close follow of her anemic state. She has tolerated the blood transfusion with out incident, tolerating p.o. diet, hemodynamically stable and ready for discharge. On 11/26/23, Charmaine was seen on morning rounds and deemed medically stable for discharge. Charmaine was discharged with instructions to schedule follow-up appointments with [facility]. Charmaine and her mother were given the opportunity to ask questions and reported no further questions. Furthermore, all questions were answered to the best of my ability. A copy of this discharge summary will be sent to the above providers to facilitate continuity of care. Today, I personally spent 50 minutes with Charmaine, of which greater than 50% of the time was spent in patient education, counseling, and coordination of care as described above. Physical Exam General: AAO x3, NAD HEENT: Atraumatic, Normocephalic, PERRLA Neck: 2+ carotid pulse no bruit, JVD not distended Respiratory: Clear to auscultation bilaterally, Normal air movement, symmetrical chest wall movement Cardiovascular: No edema, Normal pulses, Regular rate/rhythm, Normal S1 S2 Capillary refill: <2 Seconds Gastrointestinal: Benign on palpation, NT/ND, positive bowel sounds Musculoskeletal: No clubbing, No swelling, No contractures Integumentary: No rashes, No breakdown, No significant lesion Neurological: Normal speech, Normal strength at 5/5 x4 extr, Normal tone Vital Signs/Physical Exam: Temp Pulse Resp BP Pulse Ox 97.7 F 62 18 100/61 100 11/26/23 03:22 11/26/23 03:22 11/26/23 03:22 11/26/23 03:22 11/26/23 03:22 Laboratory Data at Discharge: WBC 5.60 thou/uL (4.3-10.9) 11/26/23 06:10 Hgb 8.0 g/dL (12.0-15.0) L D 11/26/23 06:10 Hct 24.7 % (36.0-45.0) L 11/26/23 06:10 Plt Count 458 thou/uL (152-406) H 11/26/23 06:10 PT Cancelled 11/26/23 05:00 INR Cancelled 11/26/23 05:00 APTT Cancelled 11/26/23 05:00 Sodium 137 mEq/L (136-145) 11/26/23 06:10 Potassium 3.8 mEq/L (3.5-5.1) 11/26/23 06:10 BUN 11 mg/dL (7-18) 11/26/23 06:10 Creatinine 0.67 mg/dL (0.55-1.02) 11/26/23 06:10 Glucose 97 mg/dL (74-106) 11/26/23 06:10 Phosphorus 4.1 mg/dL (2.5-4.9) 11/26/23 06:10 Magnesium 2.2 mg/dL (1.6-2.4) 11/26/23 06:10 Total Bilirubin 0.3 mg/dL (0.2-1.0) 11/25/23 12:30 AST 15 U/L (15-37) 11/25/23 12:30 ALT 15 U/L (13-56) 11/25/23 12:30 Alkaline Phosphatase 26 U/L (45-117) L 11/25/23 12:30 Home Medications: Ferrous Sulfate 325 mg PO DAILY 30 Days #30 tab 11/26/23 New Medications: Ferrous Sulfate 325 mg PO DAILY 30 Days #30 tab Physician Discharge Instructions: Charmaine Wilde presented to the ED due to shortness of breath and weakness. While in the ED, you were found to be severely anemic. The CT abdomen/pelvis resulted showing several fibroids that appear to be the cause of your anemia. Iron levels are low also due to these fibroids. You were admitted for a blood transfusion. You have responded well to the 2 units of PRBC transfused increasing your Hgb and decreasing your platelet level. Please follow up with your die operator for further treatment of these fibroids and for a close follow of your anemic state. 1. Follow up with your die operator concerning the fibroids and anemia level 2. Follow up with your PCP for your anemia level, iron deficiency 3. continue regular diet 4. no activity restrictions 5. return to the ED if symptoms worsen no new medications this admission. Diet: Regular Activity: Ad ray Followup: OOT,OOT [Primary Care Provider] - Time spent managing pt's care (in minutes): 35
== END 2023-11-26 08:59 | disposition home or self-care (01) ==
LOC: ER 11:48 → ERHOLD 15:21 → 2ND 16:45
PROVIDERS: ADMIT Internal Medicine; ATTEND Internal Medicine
DX: D50.0 Iron deficiency anemia secondary to blood loss (chronic) (principal); D25.9 Leiomyoma of uterus, unspecified; R53.1 Weakness; J45.909 Unspecified asthma, uncomplicated; D75.839 Thrombocytosis, unspecified; R06.02 Shortness of breath
CPT/HCPCS: 36430; 93005; 85025 ×2; 81001; 80048 ×2; 36415; 86900; 83735 ×2; 86850; 83615; 81025; 84100; 85044; 86901; 80076; 86920 ×2; 84443; 84484; 82728; 82607; 83540; 83880; 84466; 74177; 71045; Q9967; J1940; P9016 ×2; J7050; J7030